=== PATIENT | male | born 1960 | race Caucasian/White ===

== ENCOUNTER → 2024-06-23 06:18 | Day surgery (SDC) | payer OTHER, SELFPAY | LOC: GI 06:18 | PROVIDERS: ATTENDING PHYSICIAN Specialist; FAMILY PHYSICIAN Family Medicine | DX: K51.00 Ulcerative (chronic) pancolitis without complications (principal); K63.5 Polyp of colon | CPT/HCPCS: 45380; 88305 ==

== ENCOUNTER → 2024-07-21 07:41 | Outpatient (REF) | payer OTHER, SELFPAY | LOC: HWRAD 07:41 | PROVIDERS: ATTENDING PHYSICIAN Internal Medicine Endocrinology, Diabetes & Metabolism; FAMILY PHYSICIAN Family Medicine | DX: E04.2 Nontoxic multinodular goiter (principal) | CPT/HCPCS: 76536 ==

== ENCOUNTER 2024-09-19 09:01 | Emergency (ER) | payer OTHER, SELFPAY ==
[2024-09-19 09:03] VITALS: BP 164/90
--- NOTE | 2024-09-19 09:24 | ED.GENMED ---
History of Present Illness
General
Chief Complaint: Flank Pain
Source: patient and spouse
Time Seen by Provider: 09/19/24 09:07
History of Present Illness
History of Present Illness:
64yoM with a history of ulcerative colitis, coronary artery disease, hyperlipidemia, and kidney stones presenting with his for evaluation of abdominal pain. He initially started with left flank pain about 3 to 4 days ago. Pain was radiating
into the left groin. He thought he may have a kidney stone as he has a history of this. He believes he passed a kidney stone around 2 PM yesterday afternoon. He was asymptomatic for several hours after this. Patient started to experience pain in
the right lower quadrant yesterday evening. He also reports chills and started to have diarrhea this morning. He had 3 watery bowel movements so far today. Patient's daughter and granddaughter currently are sick with a GI bug. Symptoms do not
feel like his prior UC flares. He is mainly worried that he may be developing an infection from an untreated kidney stone. He denies any fevers, chest pain, shortness of breath, dysuria, hematochezia. No recent travel or recent antibiotics. No
previous abdominal surgeries.
Past History
Past History
ED Past Medical History: Asthma, Hypercholesterolemia, NIDDM (Diet controlled), [place] and Other (Ulcerative colitis, kidney stones)
ED Past Surgical History: Cardiac (Stents X 1)
Social History
Tobacco: Former smoker
Alcohol: Occasional
Personal:
Living: with family
Family History
Family History: CAD (Mother); Negative Early CAD
Phy Exam
General Physical Exam
General Presentation: well appearing and no apparent distress
General age: appears stated age
General Skin: warm and dry
General Habitus: normal
General Mental: alert
ENT Exam
ENT Exam: normocephalic
Pulmonary Exam
Pulmonary Exam: no respiratory distress
Gastrointestinal Exam
Gastrointestinal Exam: soft, non distended and other (Mild tenderness to RLQ. Abdomen soft, non-distended. No rebound or guarding. )
Neurological Exam
Neurological Exam: alert
[place] Coma Scale
Eye Opening: Spontaneous
Verbal Response: Oriented
Motor Response: Obeys Commands
GCS Total Score: 15
Skin Exam
Skin Exam: normal color and warm/dry
Psychiatric Exam
Psychiatric Exam: normal mood/affect
Course
Orders/Labs/Results
Orders:
Orders
09/19/24 09:21
0.9% Sodium Chloride 1000 ml [Nss] 1,000 ml IV BOLUS
Ketorolac [Toradol] 15 mg IV NOW STA
Ondansetron Injectable [Zofran] 4 mg IV NOW STA
09/19/24 09:22
CT Abd/pel Without Iv Or Oral Urgent
Comment:
Reason For Exam: RLQ pain, L flank pain
09/19/24 09:28
COVID-19 Antigen Urgent
Source: Nasal Swab
Complete Blood Count/With Diff Urgent
Comprehensive Metabolic Panel Urgent
Lipase Urgent
Influenza A+B Rapid Molecular Urgent
HERB Source: Nasal Swab
Specimen Description:
09/19/24 11:59
0.9% Sodium Chloride 1000 ml [Nss] 1,000 ml IV BOLUS
09/19/24 12:03
Urinalysis Reflex To Culture Urgent
Date Specimen was Collected: 09/19/24
Time Specimen was Collected: 12:01
Urine Microscopic Reflex Cult Urgent
Abnormal Lab Results
09/19/24 09/19/24
09:28 12:03
WBC 11.7 H 10^3/uL
(4.8-10.8)
Abs Immat Gran (auto) 0.1 H 10^3/uL
(0-0.05)
Absolute Neuts (auto) 10.5 H 10^3/uL
(1.4-6.5)
Absolute Lymphs (auto) 0.6 L 10^3/uL
(1.2-3.4)
Neutrophils % 89.7 H %
(42.2-75.2)
Lymphocytes % 5.1 L %
(20.5-51.1)
Carbon Dioxide 21 L mmol/L
(22-30)
Creatinine 1.4 H mg/dL
(0.7-1.3)
Glucose 147 H mg/dl
(70-99)
Lipase 550 H U/L
(23-300)
Urine Ketones 2+ A
(Negative)
Ur Occult Blood Reflex 2+ A
(Negative)
Urine Bilirubin 1+ A
(Negative)
Urine RBC 3-6 A /HPF
(0-2)
Urine Bacteria (Reflex) Few A
(Negative)
Urine Glucose 1+ A
(Negative)
09/19/24 09:28
09/19/24 09:28
Vital Signs
Initial and Last Documented VS:
Initial Vital Signs
Temp Pulse Resp BP Pulse Ox
98.2 F 90 18 164/90 99
09/19/24 09:03 09/19/24 09:03 09/19/24 09:03 09/19/24 09:03 09/19/24 09:03
Last Documented Vital Signs
Temp Pulse Resp BP Pulse Ox
98.2 F 67 14 139/79 97
09/19/24 09:03 09/19/24 13:00 09/19/24 13:00 09/19/24 13:00 09/19/24 13:00
MDM/Problems Addressed
Differential Diagnosis Includes:
64yoM here with L flank pain x several days. New RLQ pain last night. Now having diarrhea and chills. Family members currently sick with a GI bug. No urinary symptoms. He is afebrile and hemodynamically stable. He is well appearing in no distress.
No signs of peritonitis on abdominal exam. Differential diagnosis includes but is not limited to: kidney stone, UTI, pyelonephritis, gastroenteritis, viral illness, appendicitis
Initial ED plan: Check abdominal labs, UA, COVID/flu swab, stool testing, and CT abdomen. IV Toradol, Zofran, and fluid bolus for symptoms.
*Critical Care Note
Total Time (30-74mins, 75-104mins- exclusive of procedures): Not Applicable
Update Note
Update Note:
CT shows a 2mm stone at the L UVJ with mild hydro. Appendix is normal on imaging and there is no bowel wall thickening or inflammation. Creatinine 1.4 which is mildly above baseline of 1.0. Additional fluid bolus ordered. Lipase mildly elevated at
550 although pancreas appears normal on CT. No signs of infection on urinalysis. Pain controlled on reassessment. He has not had any bowel movements throughout ED stay. No indication for hospitalization. Unclear etiology of RLQ pain. Prescriptions
provided for Zofran and Flomax. Advised f/u with PCP and urology. ED return precautions discussed. He expressed understanding and is in agreement with plan. He was discharged in stable condition.
ED Attending Note
-
Portions of this chart may have been created with voice recognition software.� Occasional wrong word or��sound alike� substitutions may have occurred due to the inherent limitations of voice recognition software.
Discharge Plan
Departure
Patient Disposition: Home (Routine Discharge)
Date of Disposition: 09/19/24
Time of Disposition: 12:55
Patient with high blood pressure during this ER visit?: No
Discharge Problem:
Calculus of distal left ureter
Instructions: Kidney Stones (DC), How to Strain Your Urine
Prescriptions:
New
tamsulosin [Flomax] 0.4 mg capsule
0.4 mg PO HS Qty: 7 0RF
ondansetron 4 mg tablet,disintegrating
4 mg PO Q6H PRN (Reason: nausea and vomiting) Qty: 20 0RF
No Action
aspirin 81 MG tablet,chewable
81 mg PO DAILY 0RF
atorvastatin 40 MG tablet
40 mg PO QPM
Multivitamin Gummy
1 ea PO DAILY
Saccharomyces boulardii 250 MG capsule
250 mg PO BID
prednisone 20 MG tablet
20 mg PO DAILY Qty: 3 0RF
epinephrine [EpiPen] 0.3 MG/0.3/SYRINGE auto-injector
0.3 mg IM PRN PRN (Reason: Allergic reation) Qty: 1 3RF
Referrals:
Jr Brooks DO [Family Provider] -
Davion Samayoa MD [Active] -
Activity Restrictions/Additional Instructions:
Drink plenty of fluids. Take Flomax and strain your urine until stone has passed.
Take Zofran as needed for nausea. Take Tylenol as needed for pain.
Please call on Saturday to schedule a follow-up appointment with your family doctor and urology.
Return to the ER with any worsening symptoms, severe pain, or fevers.
Interventions
Interventions:
*Risk Screen - Suicide Last Done: 09/19/24 09:03
*General Assessment Last Done: 09/19/24 09:03
*Neglect/Abuse Screening Last Done: 09/19/24 09:15
ED- Fall Risk Assessment Last Done: 09/19/24 09:16
*ED COVID-19 Vaccine History Last Done: 09/19/24 09:03
*Nursing Disposition Last Done: 09/19/24 13:10
FC-Qcnlcn-Lexjmmykes Assessment Last Done: 09/19/24 09:15
ED-Male Genitourinary Assessment Last Done: 09/19/24 09:15
Discharge Date and Time
Discharge Date/Time: 09/19/24 13:20
Print Language: LITHUANIAN
[2024-09-19] MEDS: NSS 1000 IV ×2 (09:33→12:06)
[2024-09-19] MEDS: ZOFRAN 4 MG IV (09:33)
[2024-09-19] MEDS: TORADOL 15 MG IV (09:33)
[2024-09-19 09:41] VITALS: BMI 28.1
[2024-09-19 10:17] LABS: COVID-19 Antigen Negative (Negative)
[2024-09-19 10:43] VITALS: BP 136/74
[2024-09-19 10:44] LABS: % Basophils 0.4 % (0-2); % Immature Granulocytes 0.4 % (0-0.5); % Lymphocytes 5.1 % (20.5-51.1); % Monocytes 2.4 % (1.7-9.3); % Neutrophils 89.7 % (42.2-75.2); Absolute Basophils 0.1 10^3/uL (0-0.2); Absolute Eosinophils 0.2 10^3/uL (0-0.7); Absolute Immature Granulocytes 0.1 10^3/uL (0-0.05); Absolute Lymphocytes 0.6 10^3/uL (1.2-3.4); Absolute Monocytes 0.3 10^3/uL (0.1-0.6); Absolute Neutrophils 10.5 10^3/uL (1.4-6.5); Hemoglobin 15.4 g/dL (13.0-18.0); Mean Corp Hgb Conc. 34.2 g/dL (33.0-37.0); Mean Corpuscular Hgb 30.1 pg (27.0-31.0); Mean Corpuscular Volume 88.1 fL (80.0-94.0); Mean Platelet Volume 9.9 fL (7.4-10.4); Nucleated Red Blood Cells % 0 % (-); Platelet Count 252 10^3/uL (130-400); Red Blood Cell Count 5.11 10^6/uL (4.70-6.10); Red Cell Dist. Width 12.1 % (11.5-14.5); White Blood Cell Count 11.7 10^3/uL (4.8-10.8)
[2024-09-19 10:54] LABS: ALT (SGPT) 24 U/L (0-50); AST (SGOT) 29 U/L (17-59); Albumin 4.3 g/dl (3.5-5.0); Alkaline Phosphatase 119 U/L (38-126); Blood Urea Nitrogen 18 mg/dl (9-20); Carbon Dioxide 21 mmol/L (22-30); Chloride 103 mmol/L (98-107); Estimated Creatinine Clearance 53 ml/min; Glucose 147 mg/dl (70-99); Lipase 550 U/L (23-300); Potassium 4.3 mmol/L (3.5-5.1); Sodium 135 mmol/L (135-145); Total Protein 8.1 g/dl (6.3-8.2); eGFR 56.83
[2024-09-19 11:00] VITALS: BP 123/71
[2024-09-19 12:27] LABS: Urine Albumin Trace (Neg - Trace); Urine Bilirubin 1+ (Negative); Urine Character Clear (Clear); Urine Color Yellow; Urine Glucose 1+ (Negative); Urine Ketone 2+ (Negative); Urine Leukocyte Negative (Negative); Urine Nitrite Negative (Negative); Urine Occult Blood 2+ (Negative); Urine Urobilinogen Negative (Neg - 1+)
[2024-09-19 12:50] LABS: Urine Urothelial Cell 0-2 /LPF (FEW)
[2024-09-19 12:51] LABS: Urine Bacteria Few (Negative)
[2024-09-19 13:00] VITALS: BP 139/79
== END 2024-09-19 13:20 | disposition home or self-care (01) ==
LOC: EMR 09:01
PROVIDERS: Physician Assistant; EMERGENCY PHYSICIAN Emergency Medicine; FAMILY PHYSICIAN Family Medicine
DX: N13.2 Hydronephrosis with renal and ureteral calculous obstruction (principal); E78.00 Pure hypercholesterolemia, unspecified; J45.909 Unspecified asthma, uncomplicated; I25.10 Atherosclerotic heart disease of native coronary artery without angina pectoris; I25.2 Old myocardial infarction; Z87.19 Personal history of other diseases of the digestive system; Z87.891 Personal history of nicotine dependence; Z95.5 Presence of coronary angioplasty implant and graft
CPT/HCPCS: 96374; 96375; 96361; 99284; 74176; 80053; 81003; 81015; 83690; 85025; 87502; 87811

== ENCOUNTER 2024-10-26 22:11 | Inpatient (IN) | payer OTHER, SELFPAY ==
[2024-10-26 15:48] VITALS: BP 189/115
--- NOTE | 2024-10-26 15:48 | ED.GENMED ---
ED Provider Triage
<David Del Angel PA-C - Last Filed: 10/26/24 19:39>
-
Patient seen by provider in Triage?: Seen in Triage
Attestation: A medical screening examination has been initiated by a qualified medical provider. Based on the assessment performed at this time, it has been determined that an emergent medical condition may exist and the patient has been informed
that further medical evaluation and possible additional diagnostic testing may be needed.
HPI:
GENERAL: Alert , in no apparent distress
EYE: No visual abnormalities.
NECK: Trachea midline
ENT: No visible abnormalities.
LUNGS: No acute respiratory distress
NEUROLOGICAL: Alert and oriented
SKIN: Skin intact. No visible changes.
MUSCULOSKELETAL: Moving extremities normally
PSYCH: Normal and appropriate interaction.
This is a medical evaluation conducted in person to initiate diagnostic evaluation and provide initial therapeutics. Please see further documentation by the treating clinician.
7:30 PM: GI team was notified of patient's CT results and labs. They are recommending patient be admitted. Patient was brought to the front of the line for a room assignment. Patient to be admitted to hospitalist service.
History of Present Illness
<David Del Angel PA-C - Last Filed: 10/26/24 19:39>
General
Chief Complaint: Abdominal Symptoms
Time Seen by Provider: 10/26/24 20:05
<Ulises Jaffe DO - Last Filed: 10/26/24 21:24>
General
Source: patient
History of Present Illness
History of Present Illness:
64-year-old male presents to the emergency room at the advice of Dr. Lei young airline lounge receptionist. Patient has been experiencing frequent watery, bloody diarrhea for the past 5 to 6 weeks. He has had about a 20 pound weight loss. Patient has a
history of ulcer colitis. He had a change in his biologic treatment in a fall. Shortly thereafter he had a kidney stone and began having bloody stools. He has been on a couple courses of oral steroids without improvement. When he attempts to eat
something he has increased abdominal pain and increased bloody stool so therefore he is not eating very much. No fever. Abdominal pain is tolerable right now.
Past History
<David Del Angel PA-C - Last Filed: 10/26/24 19:39>
Past History
ED Past Medical History: Asthma, Hypercholesterolemia, NIDDM (Diet controlled), [place] and Other (Ulcerative colitis, kidney stones)
ED Past Surgical History: Cardiac (Stents X 1)
Social History
Tobacco: Former smoker
Alcohol: Occasional
Personal:
Living: with family
Family History
Family History: CAD (Mother); Negative Early CAD
Phy Exam
<Ulises Jaffe DO - Last Filed: 10/26/24 21:24>
Physical Exam
Physical Exam:
General: Awake, Alert, Oriented X3. No acute distress.
Vitals: unremarkable
Head: Atraumatic
Eyes: Pupils equal, EOMI
Throat: Airway intact, no exudates, mildly dry mucosa
Neck: Trachea midline
Lungs: Clear and equal b/l
Heart: Regular rate, no murmurs
Abd: Soft, mildly distended, mild tender but no rebound, No pulsatile mass
Neuro: Nonfocal
Skin: Warm, dry, no rash
Extremities: pulses equal b/l, no edema
Course
<David Del Angel PA-C - Last Filed: 10/26/24 19:39>
Orders/Labs/Results
Orders:
Orders
10/26/24 15:48
Iohexol [Omnipaque] See Protocol PO NOW STA
10/26/24 15:49
CT Abd/pel (oral only)-DH Only Urgent
Comment:
Reason For Exam: abd pain, hematochezia
10/26/24 16:01
Type+Screen Urgent
Complete Blood Count/With Diff Urgent
Comprehensive Metabolic Panel Urgent
Lipase Urgent
PTT Urgent
Prothrombin Time Urgent
10/26/24 20:19
MethylPREDNISolone PF [Solu-Medrol Pf] 40 mg IV NOW STA
10/26/24 20:30
0.9% Sodium Chloride 1000 ml [Nss] 1,000 ml IV 200 mls/hr
10/26/24 20:45
Calprotectin, Fecal [S] Urgent
Date Specimen was Collected: 10/26/24
Time Specimen was Collected: 20:42
10/26/24 20:46
CDIFF [C difficile Antigen & Toxins] Urgent
HERB Source: Feces/Stool
Specimen Description:
Date Specimen was Collected: 10/26/24
Time Specimen was Collected: 20:42
Abnormal Lab Results
10/26/24
16:01
RBC 4.68 L 10^6/uL
(4.70-6.10)
Abs Immat Gran (auto) 0.1 H 10^3/uL
(0-0.05)
Immature Gran % 0.7 H %
(0-0.5)
Sodium 134 L mmol/L
(135-145)
Glucose 304 H mg/dl
(70-99)
Antibody Screen Positive A
(Negative)
10/26/24 16:01
10/26/24 16:01
Vital Signs
Initial and Last Documented VS:
Initial Vital Signs
Temp Pulse Resp BP Pulse Ox
98.1 F 89 18 189/115 98
10/26/24 15:48 10/26/24 15:48 10/26/24 15:48 10/26/24 15:48 10/26/24 15:48
Last Documented Vital Signs
Temp Pulse Resp BP Pulse Ox
97.8 F 68 18 141/80 96
10/26/24 19:06 10/26/24 20:16 10/26/24 20:16 10/26/24 20:16 10/26/24 20:16
Karlielt;Ulises Jaffe, DO - Last Filed: 10/26/24 21:24>
Orders/Labs/Results
Orders:
Orders
10/26/24 15:48
Iohexol [Omnipaque] See Protocol PO NOW STA
10/26/24 15:49
CT Abd/pel (oral only)-DH Only Urgent
Comment:
Reason For Exam: abd pain, hematochezia
10/26/24 16:01
Type+Screen Urgent
Complete Blood Count/With Diff Urgent
Comprehensive Metabolic Panel Urgent
Lipase Urgent
PTT Urgent
Prothrombin Time Urgent
10/26/24 20:19
MethylPREDNISolone PF [Solu-Medrol Pf] 40 mg IV NOW STA
10/26/24 20:30
0.9% Sodium Chloride 1000 ml [Nss] 1,000 ml IV 200 mls/hr
10/26/24 20:45
Calprotectin, Fecal [S] Urgent
Date Specimen was Collected: 10/26/24
Time Specimen was Collected: 20:42
10/26/24 20:46
CDIFF [C difficile Antigen & Toxins] Urgent
HERB Source: Feces/Stool
Specimen Description:
Date Specimen was Collected: 10/26/24
Time Specimen was Collected: 20:42
Abnormal Lab Results
10/26/24
16:01
RBC 4.68 L 10^6/uL
(4.70-6.10)
Abs Immat Gran (auto) 0.1 H 10^3/uL
(0-0.05)
Immature Gran % 0.7 H %
(0-0.5)
Sodium 134 L mmol/L
(135-145)
Glucose 304 H mg/dl
(70-99)
Antibody Screen Positive A
(Negative)
10/26/24 16:01
10/26/24 16:01
Vital Signs
Initial and Last Documented VS:
Initial Vital Signs
Temp Pulse Resp BP Pulse Ox
98.1 F 89 18 189/115 98
10/26/24 15:48 10/26/24 15:48 10/26/24 15:48 10/26/24 15:48 10/26/24 15:48
Last Documented Vital Signs
Temp Pulse Resp BP Pulse Ox
97.8 F 68 18 141/80 96
10/26/24 19:06 10/26/24 20:16 10/26/24 20:16 10/26/24 20:16 10/26/24 20:16
<Ulises Jaffe DO - Last Filed: 10/26/24 21:24>
MDM/Problems Addressed
Differential Diagnosis Includes:
Exacerbation of her ulcerative colitis, colonic perforation or abscess, anemia, electrode abnormality
MDM/Problems Addressed:
Patient presents with persistent bloody diarrhea from ulcerative colitis that has not been controlled with outpatient regimens. CT here shows moderate diffuse colonic inflammation. No abscess. His white count is normal. Discussed with GI. With
no fever no white count there is no immediate need for antibiotics. Will start IV steroids. Stool studies recommended by GI have been ordered.
<Ulises Jaffe DO - Last Filed: 10/26/24 21:24>
*Radiology
Radiology exam reviewed: radiology read reviewed
*Pulse Oximetry
Patient hypoxic: no
*Critical Care Note
Total Time (30-74mins, 75-104mins- exclusive of procedures): Not Applicable
ED Attending Note
<David Del Angel PA-C - Last Filed: 10/26/24 19:39>
-
Portions of this chart may have been created with voice recognition software.� Occasional wrong word or��sound alike� substitutions may have occurred due to the inherent limitations of voice recognition software.
Discharge Plan
Departure
Patient Disposition: Admit
Date of Disposition: 10/26/24
Time of Disposition: :
Admit to: Med/Surg
Presentation/result/management discussed w/ accepting MD/DO: Hospitalist
Condition: Fair
Discharge Problem:
Exacerbation of ulcerative colitis with rectal bleeding
Prescriptions:
No Action
atorvastatin 40 MG tablet
40 mg PO QPM
prednisone 20 MG tablet
20 mg PO DAILY Qty: 3 0RF
epinephrine [EpiPen] 0.3 MG/0.3/SYRINGE auto-injector
0.3 mg IM PRN PRN (Reason: Allergic reation) Qty: 1 3RF
cholecalciferol (vitamin D3) [Vitamin D3] 50 mcg (2,000 unit) Capsule
50 mcg PO DAILY
aspirin 81 MG tablet,chewable
162 mg PO DAILY
Interventions
Interventions:
*Risk Screen - Suicide Last Done: 10/26/24 20:15
*General Assessment Last Done: 10/26/24 20:15
*Neglect/Abuse Screening Last Done: 10/26/24 20:15
*ED COVID-19 Vaccine History Last Done: 10/26/24 20:15
KK-Qiphwu-Hbwsfjpvvx Assessment Last Done: 10/26/24 20:18
Discharge Date and Time
Print Language: SINHALA
[2024-10-26] MEDS: OMNIPAQUE 50 ML PO (15:56)
[2024-10-26 16:20] LABS: INR 0.95
[2024-10-26 16:21] LABS: APTT 23.8 Sec (23.4-35.0)
[2024-10-26 16:29] LABS: ALT (SGPT) 26 U/L (0-50); AST (SGOT) 20 U/L (17-59); Albumin 3.6 g/dl (3.5-5.0); Alkaline Phosphatase 113 U/L (38-126); Blood Urea Nitrogen 17 mg/dl (9-20); Calcium 8.7 mg/dl (8.4-10.2); Carbon Dioxide 25 mmol/L (22-30); Chloride 99 mmol/L (98-107); Glucose 304 mg/dl (70-99); Lipase 194 U/L (23-300); Sodium 134 mmol/L (135-145); Total Bilirubin 0.4 mg/dl (0.2-1.3); Total Protein 6.9 g/dl (6.3-8.2); eGFR > 60.00
[2024-10-26 16:44] LABS: % Basophils 0.5 % (0-2); % Eosinophils 0.3 % (0-6); % Immature Granulocytes 0.7 % (0-0.5); % Lymphocytes 22.7 % (20.5-51.1); % Monocytes 4.1 % (1.7-9.3); % Neutrophils 71.7 % (42.2-75.2); Absolute Immature Granulocytes 0.1 10^3/uL (0-0.05); Absolute Monocytes 0.4 10^3/uL (0.1-0.6); Absolute Neutrophils 6.3 10^3/uL (1.4-6.5); Hematocrit 40.9 % (39.0-52.0); Mean Corp Hgb Conc. 34.2 g/dL (33.0-37.0); Mean Corpuscular Hgb 29.9 pg (27.0-31.0); Mean Corpuscular Volume 87.4 fL (80.0-94.0); Mean Platelet Volume 8.9 fL (7.4-10.4); Nucleated Red Blood Cells % 0 % (-); Platelet Count 308 10^3/uL (130-400); Red Blood Cell Count 4.68 10^6/uL (4.70-6.10); Red Cell Dist. Width 13.1 % (11.5-14.5); White Blood Cell Count 8.8 10^3/uL (4.8-10.8)
[2024-10-26 19:06] VITALS: BP 133/82
[2024-10-26 20:15] VITALS: BMI 26.2
[2024-10-26 20:16] VITALS: BP 141/80
--- NOTE | 2024-10-26 20:43 | EDRN ---
the pt stated to this PHOTO COLORER that he just had a Negative C. Diff stool test one week ago. This PHOTO COLORER informed ER Dr Jaffe of above. Per ER DR Jaffe, the pts Dr Odom wants to obtain another stool sample and repeat the stool tests. the pt was
notified of above
[2024-10-26] MEDS: NSS 1000 IV (20:48)
[2024-10-26] MEDS: SOLU-MEDROL PF 40 MG IV (20:49)
--- NOTE | 2024-10-26 21:18 | HPS.HSE ---
Addendum entered and electronically signed by Zach Mckoy DO 10/26/24 23:04:
Patient seen and examined independently. Agree with findings and plan as set forth by Aida Rodriguez PA-C.
Patient is a 64y M with PMH significant for ulcerative colitis and ASCVD who presents to ED complaining of bloody diarrhea. Patient states that he has been having uncontrolled bloody diarrhea - between 10 and 12 bowel movements per day - for the
past month or so. He was switched to Entyvio last Fall. He has been followed by GI and notes that he has been on multiple courses of oral steroid tapers. He notes that he has some temporary relief however his symptoms return once doses are
decreasing. Patient states that he has lost 20 lbs in the past month.
Ass:
Ulcerative Colitis with Acute Flare / Uncontrolled Symptoms
ASCVD
Hyperglycemia secondary to systemic steroids
Plan:
Admit for further evaluation and treatment.
Begin SoluMedrol 40mg IV daily per GI recommendations.
GI evaluation for further recommendations.
Supportive care, IVFs, etc.
Follow for clinical improvement.
Monitor glucose while on systemic steroids and cover with SSI if necessary.
Continue ASA uninterrupted.
Original Note:
Family Physician
-
Family Physician: NOT KNOW UNKNOWN - PT DOES
Chief Complaint
-
Bloody Diarrhea
History of Present Illness
Patient is a 64 y/o male past medical history of CAD and ulcerative colitis who presents with bloody diarrhea. Patient reports on going symptoms for about 5-6 weeks. He completed one coarse of steroids without much improvement, then was started on
a second coarse of steroids at a higher dose again without change in symptoms. He continues with abdominal pain, bloody diarrhea over 10 times a day. He denies fevers, sweats or chills. He reports negative stools studies last week.
Medical History
Past Medical History
Past Medical History: Reports Other
Additional Past Medical History:
Coronary Artery Disease s/p Stent
Hyperlipidemia
Pre-Diabetes
Ulcerative Colitis
Past Surgical History: Reports Other
Additional Past Surgical History:
Multiple Colonoscopies
Cardiac Stent
Social History
Tobacco: Former Smoker (Quit about 10 years ago)
Alcohol: Occasional
Family History
Family History: Not pertinent
Allergies / Home Medications
Allergies reflects when Allergies were last updated in [facility].
Home Medications with original date entered in [facility]
Allergy/Medication List:
Allergies
Allergy/AdvReac Type Severity Reaction Status Date / Time
buckwheat Allergy Shortness Verified 10/26/24 20:15
of Breath
flaxseed Allergy Shortness Verified 10/26/24 20:15
of Breath
Iodinated Contrast Media Allergy IV Verified 10/26/24 20:15
[Iodinated Contrast Media - DYE-ANAPHYLAXIS
Oral and]
Home Medications
atorvastatin 40 mg tablet 40 mg PO QPM 01/03/17
epinephrine 0.3 mg/0.3 mL injection, auto-injector (EpiPen) 0.3 mg (0.3 mL) IM PRN PRN Allergic reation ##1 01/03/22
prednisone 20 mg tablet 20 mg PO DAILY Allergies #3 tabs 01/03/22
aspirin 81 mg chewable tablet 162 mg PO DAILY 10/26/24
cholecalciferol (vitamin D3) 50 mcg (2,000 unit) capsule (Vitamin D3) 50 mcg PO DAILY 10/26/24
Review of Systems
-
A 12 point ROS was completed and negative except as noted: Yes
Constitutional: Reports Weight Loss; Denies Fever or Chills
Respiratory: Denies Cough or Trouble Breathing
Cardiac: Denies Chest Pain or Palpitations
Abdomen/GI: Reports See HPI
Physical Exam
Vital Signs
Vital Signs
Temp Pulse Resp BP Pulse Ox
97.8 F 68 18 141/80 96
10/26/24 19:06 10/26/24 20:16 10/26/24 20:16 10/26/24 20:16 10/26/24 20:16
Physical Exam
General: Comfortable and Conversant
HEENT: Anicteric and Moist mucous membranes
Respiratory: Clear and Non Labored Respirations
Cardiac: S1/S2 and Regular Rhythm
GI: Soft and Tender (Mild throughout slightly greater on right than left; No rebound or guarding)
Rectal: Deferred by Provider
Musculoskeletal: No Clubbing, No Cyanosis and No Edema
Skin: Warm and Dry
Neuro: Awake, Alert, Oriented and Nonfocal/grossly intact
Psych: Calm
Laboratory Results
-
10/26/24 16:01
10/26/24 16:01
Laboratory Results
PT 13.0 Sec (11.4-14.6) 10/26/24 16:01
INR 0.95 10/26/24 16:01
APTT 23.8 Sec (23.4-35.0) 10/26/24 16:01
Total Bilirubin 0.4 mg/dl (0.2-1.3) 10/26/24 16:01
AST 20 U/L (17-59) 10/26/24 16:01
ALT 26 U/L (0-50) 10/26/24 16:01
Alkaline Phosphatase 113 U/L (38-126) 10/26/24 16:01
Lipase 194 U/L (23-300) 10/26/24 16:01
Data Reviewed
-
CT Scan: Report Reviewed by me
Lab Data: Labs Reviewed by me
Impression/Plan
-
Persistent Bloody Diarrhea, likely Ulcerative Colitis Flare
-Consult GI
-Continue Solu-Medrol 40mg IV Daily
-Allow clear liquids
-Check fecal calprotectin
Hyperglycemia
-Patient reports pre-diabetes with HgbA1c ~6.2 for the past several years which he has controlled with diet
-Sugars are uncontrolled in setting of steroids
-Check HgbA1c
-Monitor sugars and continue coverage insulin
Coronary Artery Disease s/p Stent
-Aspirin on hold in setting of bloody diarrhea
Hyperlipidemia
-Continue atorvastatin
DVT proph: SCDs
Code Status: Full Code
[2024-10-26 22:32] VITALS: BP 147/87
[2024-10-26 23:43] VITALS: BP 165/99; BMI 25.9
--- NOTE | 2024-10-26 23:43 | PTCARENOTE ---
Pt arrived onto floor @2343. Pt AAOx3 and able to ambulate into room without assistance. Pt with no complaints of pain or SOB at this time. Pt oriented to room and call proctor; will continue to monitor
[2024-10-27] MEDS: NSS 1000 IV ×3 (02:07→21:22)
[2024-10-27 03:52] VITALS: BP 135/81
[2024-10-27 06:00] VITALS: BMI 25.9
[2024-10-27 07:09] VITALS: BP 149/90
[2024-10-27 08:34] LABS: Glucose - Point of Care 175 mg/dl (70-99)
[2024-10-27 08:37] LABS: Hematocrit 38.4 % (39.0-52.0); Hemoglobin 13.1 g/dL (13.0-18.0); Mean Corp Hgb Conc. 34.1 g/dL (33.0-37.0); Mean Corpuscular Volume 87.9 fL (80.0-94.0); Mean Platelet Volume 9.2 fL (7.4-10.4); Platelet Count 296 10^3/uL (130-400); Red Blood Cell Count 4.37 10^6/uL (4.70-6.10); Red Cell Dist. Width 13.1 % (11.5-14.5); White Blood Cell Count 11.2 10^3/uL (4.8-10.8)
[2024-10-27] MEDS: NOVOLOG FLEXPEN-LOW RESISTANCE 1 UNITS SC (08:55)
[2024-10-27 08:56] LABS: Blood Urea Nitrogen 16 mg/dl (9-20); Calcium 8.5 mg/dl (8.4-10.2); Carbon Dioxide 23 mmol/L (22-30); Chloride 102 mmol/L (98-107); Estimated Creatinine Clearance 82 ml/min; Glucose 184 mg/dl (70-99); Potassium 4.5 mmol/L (3.5-5.1); Sodium 135 mmol/L (135-145); eGFR > 60.00
--- NOTE | 2024-10-27 09:09 | CON.GI ---
Addendum entered and electronically signed by Efrain Greco DO 10/27/24 12:27:
I saw and examined the patient.
The PROBATION COUNSELOR's note was reviewed and I agree with the note.
Comment: Mr. Bettencourt is a 64 y.o male with past medical history of obstructive CAD, hx of DC (s/p stent, on ASA), hx of CDI, herpes zoster, and history of ulcerative colitis (prev on 5-ASA and then IFX) with recent colonoscopy demonstrating Mccormick
score 2 pancolitis (05/2024 after being found to have an elevated fecal calprotectin) where he was started on Entyvio (06/2024) with ongoing bloody stools and repeat elevated fecal calprotectin 3800 with ongoing refractory bloody stools despite
ongoing steroids. CT imaging concerning for moderate inflammation throughout the colon concerning for ulcerative pancolitis. Etiology concerning for [id number] acute ulcerative pancolitis despite outpatient oral steroids and recent change to
Entyvio (06/2024). Need to r/o infectious stool studies particularly C Diff given his history (although prior C Diff negative 10/22) along with potential underlying CMV given his refractory pancolitis. Agree with IV steroids 20 mg q 8 hrs along with
trending inflammatory markers with ESR/CRP. Would benefit from a limited flex-sig to r/o CMV colitis along with reassessing disease activity as previous Mccormick Score 2 during prior colonoscopy 05/2024. See rest of care as outlined below.
GI will continue to follow while inpatient.
Original Note:
Consultation
-
Date/Time Consultation Requested: 10/26/24 2330
Date/Time Consultation Performed: 10/27/24 0900
Requesting Provider: Aida Rodriguez PA-C
Performing Provider: GILA Wright, Efrain Greco DO
Reason for Consultation: colitis flare
Medical History
Chief Complaint / HPI
History of Present Illness:
Pt is a 64yo with hx CAD with prior DC and stent, pilonidal cyst with prior surgery, c-diff, herpes zoster, NIDDM, longstanding ulcerative colitis with prior use of Mesalamine agent then inflectra. He was noted with some elevation on fecal ludmila up
to 1340 in February then proceed with colonoscopy in May with pancolitis with friability, erosions and acute/chronic inflammation. he was started on Entyvio in June but fecal ludmila continued to elevate to 3880 in August. He was placed on
outpatient steroids and 10/22 c-diff was neg with also neg c-diff, O+p, stool cx in August. He now presents with continued blood diarrhea with 10-12 stools per day. On admission noted with hbg 14, platelets 308, glucose 304 with otherwise stable
labs. Ct on admission with Moderate contiguous wall thickening involving the colon, extending from the rectum through the inferior cecum. Findings are compatible with the given clinical history of ulcerative colitis. No significant wall thickening
is seen involving the ileum. No evidence for bowel obstruction or free intraperitoneal air. There is no significant free pelvic fluid.
In review with patient symptoms became severe around [place] with continuous bleeding without formed stools since that time. He has lost about 18 lbs since that time. He has some mild abdominal pain. He denies dysphagia, GERD, nausea,
vomiting, or black stools.
Past Medical History
Past Medical History: Asthma, CAD, Cancer (squamous cell CA), Hypercholesterolemia, NIDDM, DC and Other (ulcerative colitis,, c-diff infection, pilonidal cyst, herpes Zoster, cervical DDD, thyroid nodule, onychomycosis, left steroclavicalular joint
arthrosis )
Past Surgical History: Cardiac (stents ) and Other (pilonidal cyst surgery, mohs surgery)
Social History
Tobacco: Former Smoker (quit 10 years ago)
Alcohol: Occasional
Drug: None
Personal:
Living: With Family
Employment: Retired
Family History
Family History: Other (no family hx IBD)
Allergies / Home Medications
Allergy/AdvReac Type Severity Reaction Status Date / Time
buckwheat Allergy Shortness Verified 10/26/24 20:15
of Breath
flaxseed Allergy Shortness Verified 10/26/24 20:15
of Breath
Iodinated Contrast Media Allergy IV Verified 10/26/24 20:15
[Iodinated Contrast Media - DYE-ANAPHYLAXIS
Oral and]
�Medication �Instructions �Recorded
atorvastatin 40 mg tablet 40 mg PO QPM 01/03/17
epinephrine 0.3 mg/0.3 mL 0.3 mg (0.3 mL) IM PRN PRN 01/03/22
injection, auto-injector (EpiPen) Allergic reation ##1
prednisone 20 mg tablet 20 mg PO DAILY Allergies #3 tabs 01/03/22
aspirin 81 mg chewable tablet 162 mg PO DAILY 10/26/24
cholecalciferol (vitamin D3) 50 50 mcg PO DAILY 10/26/24
mcg (2,000 unit) capsule (Vitamin
D3)
Review of Systems
-
History Source: Patient
Constitutional: Reports Weight Loss (18 lbs with rectal bleeding) and Other (no visual problems)
Respiratory: Reports Trouble Breathing (at times )
Cardiac: Reports No Symptoms
Abdomen/GI: Reports Abdominal Pain, Diarrhea and Bloody Stools
: Reports No Symptoms
Musculoskeletal: Reports No Symptoms
Skin: Reports Rash
Neurological: Reports No Symptoms
Endocrine: Reports No Symptoms
Hematologic/Lymphatic: Reports Bleeding
Vital Signs
Temp Pulse Resp BP Pulse Ox
97.6 F 69 18 149/90 97
10/27/24 07:09 10/27/24 07:09 10/27/24 07:09 10/27/24 07:09 10/27/24 07:09
Physical Exam
Exam
General: Well Developed, Well Nourished and No Apparent Distress
HEENT: Normocephalic and Anicteric
Respiratory: Clear
Cardiac: Regular Rhythm
GI: Soft, Non Distended and Tender (mild lower abdominal pain)
Rectal: Deferred by Provider
Musculoskeletal: No Clubbing and No Cyanosis
Skin: Warm
Neuro: Awake, Alert and AO x 3
Psych: Calm
Results
WBC 11.2 10^3/uL (4.8-10.8) H 10/27/24 07:49
Hgb 13.1 g/dL (13.0-18.0) 10/27/24 07:49
Hct 38.4 % (39.0-52.0) L 10/27/24 07:49
MCV 87.9 fL (80.0-94.0) 10/27/24 07:49
Plt Count 296 10^3/uL (130-400) 10/27/24 07:49
Absolute Neuts (auto) 6.3 10^3/uL (1.4-6.5) 10/26/24 16:01
PT 13.0 Sec (11.4-14.6) 10/26/24 16:01
INR 0.95 10/26/24 16:01
APTT 23.8 Sec (23.4-35.0) 10/26/24 16:01
Sodium 135 mmol/L (135-145) 10/27/24 07:49
Potassium 4.5 mmol/L (3.5-5.1) 10/27/24 07:49
Chloride 102 mmol/L (98-107) 10/27/24 07:49
Carbon Dioxide 23 mmol/L (22-30) 10/27/24 07:49
BUN 16 mg/dl (9-20) 10/27/24 07:49
Creatinine 0.9 mg/dL (0.7-1.3) 10/27/24 07:49
Calcium 8.5 mg/dl (8.4-10.2) 10/27/24 07:49
Total Bilirubin 0.4 mg/dl (0.2-1.3) 10/26/24 16:01
AST 20 U/L (17-59) 10/26/24 16:01
ALT 26 U/L (0-50) 10/26/24 16:01
Alkaline Phosphatase 113 U/L (38-126) 10/26/24 16:01
Lipase 194 U/L (23-300) 10/26/24 16:01
Diagnostic Image Results:
10/26/24 CT Abd/pel (oral only)-DH Only
Moderate contiguous wall thickening involving the colon, extending from the rectum through the inferior cecum. Findings are compatible with the given clinical history of ulcerative colitis.
No significant wall thickening is seen involving the ileum. No evidence for bowel obstruction or free intraperitoneal air. There is no significant free pelvic fluid.
Multiple small bilateral nephroliths, with no evidence for ureteral calculus on the present examination.
Bony degenerative changes as described.
Prior GI Procedures:
������09/24/24 CALPROTECTIN 3880
JUNE/2024- INDUCTION ENTYVIO
06/23/24 COLON- Pancolitis erythema, decreased vascularity, friability, erosion bx mild acute/chronic inflammation ascending to prox transverse. Nonadenomatous polyp cecum
05/18/24 IFX LEVEL 13, AB to IFX <10
03/16/24 CALPROTECTIN 1340
12/26/22 IFX LEVEL 15.6. AB TO IFX <10
07/16/22 COLON (Natalia)- Normal colon bx chronic moderately active colitis ascending colon in one biopsy, moderate chronic inflammation
06/09/20 COLON (Natalia)- Ulceration ascending colon and rectum bx mild/moderate chronic pancolitis
APRIL 2018- REMICADE INDUCTION
04/14/18 COLON (Natalia)- Two pAC polyps. Erythema/edema, ulcers rectosigmoid bx mild chronic active pancolitis, moderate/severe proctitis indefinite for dysplasia
11/29/14 COLON (Natalia)- Patchy inflammation and pseudopolyps recto-sigmoid, descending, hepatic flexure bx moderate active colitis @20cm, mild elsewhere.
06/26/10 COLON (Natalia)- Ulceration proximal ascending colon, normal elsewhere bx moderate chronic colitis ascending/transverse mild elsewhere.
Assessment / Plan
-
Pt is a 64yo with hx CAD with prior DC and stent, pilonidal cyst with prior surgery, c-diff, herpes zoster, NIDDM, longstanding ulcerative colitis with prior use of Mesalamine agent then inflectra. He was noted with some elevation on fecal ludmila up
to 1340 in February then proceed with colonoscopy in May with pancolitis with friability, erosions and acute/chronic inflammation. he was started on Entyvio in June but fecal ludmila continued to elevate to 3880 in August. He was placed on
outpatient steroids and 10/22 c-diff was neg with also neg c-diff, O+p, stool cx in August. He now presents with continued blood diarrhea with 10-12 stools per day. On admission noted with hbg 14, platelets 308, glucose 304 with otherwise stable
labs. Ct on admission with Moderate contiguous wall thickening involving the colon, extending from the rectum through the inferior cecum. Findings are compatible with the given clinical history of ulcerative colitis. No significant wall thickening
is seen involving the ileum. No evidence for bowel obstruction or free intraperitoneal air. There is no significant free pelvic fluid.
-ulcerative colitis flare with elevated fecal ludmila and rectal bleeding
-rectal to cecal inflammation on CT
-wt loss
other med problems:
-CAD with prior DC/stent
-hx c-diff
-NIDDM on medication but some FBS elevation with steroid use
-hx herpes Zoster
-pidonical cyst
PLAN:
etiology of symptoms with concern for UC flare vs infectious r/o CVM vs other
repeat C-diff neg with recent outpatient cultures in August and September neg
will change dosing of steroids to methylprednisone 20mg Q 8 hours
cont management of hyperglycemia per medical team
will add CRP/ESR-- fecal ludimla pending
plan for flex sig 10/28 to rule out CMV
some abdominal pain but will allow diet and add supplement with weight loss prior to admission
will add compression stocking then Lovenox to start tomorrow night after flex as high risk for DVT
can consider local therapy with Cortenema/Rowasa with frequency but will hold til after eval with flex
-
-
Thank you for consultation and allowing me to participate in the patient's care. Please call the production weigher GI physician during the after hours with any questions or concerns.
[2024-10-27 09:42] VITALS: BMI 25.9
--- NOTE | 2024-10-27 10:01 | W.PN.HOSP.TC ---
Today's Communication/Plan
-
IV steroids. Flex sig in a.m.
Assessment / Plan
Assessment / Plan
Physical Exam
General: Acutely ill
HEENT: Anicteric and Moist mucous membranes
Respiratory: Clear and Non Labored Respirations
Cardiac: S1/S2 and Regular Rhythm
GI: Soft and Tender (Mild throughout slightly greater on right than left; No rebound or guarding)
Rectal: Deferred by Provider
Musculoskeletal: No Clubbing, No Cyanosis and No Edema
Skin: Warm and Dry
Neuro: Awake, Alert, Oriented and Nonfocal/grossly intact
Psych: Calm
A/P:
Persistent Bloody Diarrhea, likely Ulcerative Colitis Flare
-Consult GI appreciated
-Continue Solu-Medrol but changed to 20 mg IV every 8 hours
-Allow low residue today but n.p.o. after midnight
-Check fecal calprotectin and pending
-CRP 31.7, sed rate 58,
-Plan for flexible sigmoidoscopy tomorrow
Hyperglycemia
-Patient reports pre-diabetes with HgbA1c ~6.2 for the past several years which he has controlled with diet
-Sugars are uncontrolled in setting of steroids
-Check HgbA1c, 7.8 today
-Monitor sugars and continue coverage insulin
Coronary Artery Disease s/p Stent
-Aspirin on hold in setting of bloody diarrhea
Hyperlipidemia
-Continue atorvastatin
DVT proph: SCDs
Code Status: Full Code
Total time spent on today's encounter was 52 minutes which included time spent in counseling the patient/family regarding diagnosis and treatment plan as listed above, goals of care, and symptom management. Case was discussed with nursing staff,
specialists, and care coordinators/case management. All labs and imaging personally reviewed by me. Remainder the time spent in detailed review of previous records, lab data, imaging, and other medical provider documentation.
Anticipated Discharge: > 48 hours
Subjective/Interval History
-
Date of Service: October 27, 2024
Continues to have bloody stools and abdominal discomfort. Afebrile.
Objective Data
-
Labs:
Laboratory Results
10/27/24
07:49
WBC 11.2 H
Hgb 13.1
Hct 38.4 L
Plt Count 296
Sodium 135
Potassium 4.5
Chloride 102
Carbon Dioxide 23
BUN 16
Creatinine 0.9
Glucose 184 H
Calcium 8.5
Vital Signs:
Vital Signs
Temp Pulse Resp BP Pulse Ox
97.6 F 69 18 149/90 97
10/27/24 07:09 10/27/24 07:09 10/27/24 07:09 10/27/24 07:09 10/27/24 07:09
I&O
10/26/24 10/27/24 10/28/24
06:59 06:59 06:59
Intake Total 240 / 240
Balance 240 / 240
[2024-10-27] MEDS: SOLU-MEDROL PF 20 MG IV ×2 (11:22→17:11)
[2024-10-27 11:46] LABS: Glycohemoglobin (HgbA1c) 7.8 % (4.0-5.6)
[2024-10-27 12:34] LABS: Glucose - Point of Care 146 mg/dl (70-99)
[2024-10-27] MEDS: NOVOLOG FLEXPEN-LOW RESISTANCE SC (12:44)
--- NOTE | 2024-10-27 13:52 | CM ---
CM reviewed chart, patient seen bedside, initial assessment completed. Patient resides with his in a two story home, three steps to enter. Patient reports independent with ADLs/IADLs, denies DME, VN, or SNF. Patient confirms PCP Jr
Todd, [facility], confirms prescription coverage. Patient denies needs at this time, will continue to follow for all discharge planning needs.
Plan; home no needs likely.
[2024-10-27 14:09] LABS: Erythrocyte Sed Rate 58 mm/hour (0-20)
[2024-10-27 15:40] VITALS: BP 126/71
[2024-10-27 17:04] LABS: Glucose - Point of Care 222 mg/dl (70-99)
[2024-10-27] MEDS: LIPITOR 40 MG PO (17:11)
[2024-10-27] MEDS: MIRALAX 34 GRAMS PO (17:12)
[2024-10-27] MEDS: NOVOLOG FLEXPEN-LOW RESISTANCE 2 UNITS SC (17:12)
[2024-10-27 21:30] LABS: Glucose - Point of Care 258 mg/dl (70-99)
[2024-10-28] MEDS: SOLU-MEDROL PF 20 MG IV ×3 (02:53→17:26)
[2024-10-28 03:53] VITALS: BMI 25.6
[2024-10-28] MEDS: NSS 1000 IV (05:38)
[2024-10-28 07:21] LABS: Glucose - Point of Care 191 mg/dl (70-99)
[2024-10-28 07:30] VITALS: BP 160/87
[2024-10-28] MEDS: NOVOLOG FLEXPEN-LOW RESISTANCE 1 UNITS SC ×2 (07:40→13:44)
[2024-10-28 07:59] LABS: Hematocrit 36.4 % (39.0-52.0); Hemoglobin 12.5 g/dL (13.0-18.0); Mean Corp Hgb Conc. 34.3 g/dL (33.0-37.0); Mean Corpuscular Hgb 30.1 pg (27.0-31.0); Mean Corpuscular Volume 87.7 fL (80.0-94.0); Mean Platelet Volume 9.3 fL (7.4-10.4); Platelet Count 271 10^3/uL (130-400); Red Blood Cell Count 4.15 10^6/uL (4.70-6.10); Red Cell Dist. Width 13.2 % (11.5-14.5); White Blood Cell Count 9.2 10^3/uL (4.8-10.8)
[2024-10-28 08:16] LABS: Absolute Neutrophils -Man Diff 7.4 10^3/uL (1.4-6.5); Band Neutrophils 11 % (0-3); Lymphocytes 15 % (20-51); Monocytes 4 % (2-9); Platelets Checked Yes; Segmented Neutrophils 70 % (42-75)
[2024-10-28 08:17] LABS: Normal RBC Morphology Yes; Total Cells Counted 100
[2024-10-28 08:22] LABS: Blood Urea Nitrogen 19 mg/dl (9-20); Calcium 8.4 mg/dl (8.4-10.2); Carbon Dioxide 23 mmol/L (22-30); Chloride 102 mmol/L (98-107); Estimated Creatinine Clearance 93 ml/min; Glucose 209 mg/dl (70-99); Potassium 4.4 mmol/L (3.5-5.1); Sodium 133 mmol/L (135-145); eGFR > 60.00
--- NOTE | 2024-10-28 09:18 | W.PN.HOSP.TC ---
Today's Communication/Plan
-
Flex Sigmoid. IV steroids. CRS consult.
Assessment / Plan
Assessment / Plan
Physical Exam
General: Acutely ill
HEENT: Anicteric and Moist mucous membranes
Respiratory: Clear and Non Labored Respirations
Cardiac: S1/S2 and Regular Rhythm
GI: Soft and Tender (Mild throughout slightly greater on right than left; No rebound or guarding)
Rectal: Deferred by Provider
Musculoskeletal: No Clubbing, No Cyanosis and No Edema
Skin: Warm and Dry
Neuro: Awake, Alert, Oriented and Nonfocal/grossly intact
Psych: Calm
A/P:
Persistent Bloody Diarrhea due to worsening Ulcerative Colitis Flare (despite oral steroids/biological-Entyvio)
-GI consult appreciated
-Continue Solu-Medrol 20 mg IV every 8 hours
-Low residue per GI but consider NPO status if worsens
-Colorectal surgery consult-discussed with CRS today
-Flex Sigmoid shows worsening colitis--> IV steroids, f/u cultures, consider starting different biological agent ?Rinvoq ?Cyclosporine etc, CRS consult.
-GI considering ID eval
-C Diff negative. Stool cultures pending.
-Discussed with at bedside
Hyperglycemia
-Patient reports pre-diabetes with HgbA1c ~6.2 for the past several years which he has controlled with diet
-Sugars are uncontrolled in setting of steroids
-Checked HgbA1c, 7.8
-Monitor sugars and continue coverage insulin
Coronary Artery Disease s/p Stent
-Aspirin on hold in setting of bloody diarrhea
Hyperlipidemia
-Continue atorvastatin
DVT proph: Lovenox SQ (high risk VTE due to IBD-would only hold if significant drop Hb and bleed)
Code Status: Full Code
Total time spent on today's encounter was 52 minutes which included time spent in counseling the patient/family regarding diagnosis and treatment plan as listed above, goals of care, and symptom management. Case was discussed with nursing staff,
specialists, and care coordinators/case management. All labs and imaging personally reviewed by me. Remainder the time spent in detailed review of previous records, lab data, imaging, and other medical provider documentation.
Anticipated Discharge: > 48 hours
Subjective/Interval History
-
Date of Service: October 28, 2024
Patient still having bloody stools, abd discomfort on and off. Afebrile
Objective Data
-
Labs:
Laboratory Results
10/28/24
07:40
WBC 9.2
Hgb 12.5 L
Hct 36.4 L
Plt Count 271
Sodium 133 L
Potassium 4.4
Chloride 102
Carbon Dioxide 23
BUN 19
Creatinine 0.8
Glucose 209 H
Calcium 8.4
Vital Signs:
Vital Signs
Temp Pulse Resp BP Pulse Ox
98.4 F 69 18 160/87 94
10/28/24 07:30 10/28/24 07:30 10/28/24 07:30 10/28/24 07:30 10/28/24 07:30
I&O
10/27/24 10/28/24 10/29/24
06:59 06:59 06:59
Intake Total 240 / 240 1440 / 1440
Balance 240 / 240 1440 / 1440
[2024-10-28 11:33] VITALS: BP 123/74
[2024-10-28 11:45] VITALS: BP 121/78
[2024-10-28 11:45] LABS: Glucose - Point of Care 190 mg/dl (70-99)
[2024-10-28 15:00] VITALS: BP 143/72
[2024-10-28 17:00] LABS: Glucose - Point of Care 277 mg/dl (70-99)
[2024-10-28] MEDS: LOVENOX 40 MG SC (17:26)
[2024-10-28] MEDS: NOVOLOG FLEXPEN-LOW RESISTANCE 3 UNITS SC (17:26)
[2024-10-28] MEDS: LIPITOR 40 MG PO (17:27)
--- NOTE | 2024-10-28 18:50 | CON.CRS ---
Consultation
-
Performing Provider: Ulises Coronado MD
Reason for Consultation: refractory UC
Medical History
-
History of Present Illness:
64-year-old male with PMH of CAD (s/p stents, on aspirin), HLD, prediabetes, C. difficile, UC (diagnosed greater than 10 years ago, under the care of of Dr. Odom as an outpatient; has been on 5�ASA and infliximab; last colonoscopy was 05/2024 by
Lei, which showed persistent inflammation; patient was switched to Entyvio and his last dose was 10/19) who presents for persistent multiple episodes of bloody diarrhea. He for started having an issue shortly after starting Entyvio in August
2023. By the end of August, he was started on an oral prednisone taper which initially improved his symptoms. However, when he was down to 10 mg a day, his symptoms had worsened. Therefore, Dr. Odom put him back on 30 mg daily starting 10/19,
which was also the same day of his last Entyvio dose. He unfortunately continued having bloody diarrhea with mild abdominal pain. Therefore, he presented to the ED. He denies any fevers, CP/SOB or urinary symptoms. His WBC was 8.8. A CT scan
was done showing pancolitis without free air or thickening of the TI. He was started on IV Solu-Medrol and underwent sigmoidoscopy today for biopsies, which showed severe colitis from the rectum to descending colon. Biopsies were sent for CMV. He
has been tolerating a diet, but states that when he eats, his diarrhea will be more frequent.
Past Medical History
Past Medical History: Other (As above)
Past Surgical History: None
Social History
Tobacco: Former Smoker
Alcohol: Occasional
Drug: None
Family History
Family History: Other (Denies family history of IBD/CRC)
Allergies / Home Medications
Allergy/AdvReac Type Severity Reaction Status Date / Time
buckwheat Allergy Shortness Verified 10/26/24 20:15
of Breath
flaxseed Allergy Shortness Verified 10/26/24 20:15
of Breath
Iodinated Contrast Media Allergy IV Verified 10/26/24 20:15
[Iodinated Contrast Media - DYE-ANAPHYLAXIS
Oral and]
�Medication �Instructions �Recorded �Confirmed �Type
atorvastatin 40 mg tablet 40 mg PO QPM 01/03/17 10/26/24 History
epinephrine 0.3 mg/0.3 mL 0.3 mg (0.3 mL) IM PRN PRN 01/03/22 10/26/24 Rx
injection, auto-injector (EpiPen) Allergic reation ##1
prednisone 20 mg tablet 20 mg PO DAILY Allergies #3 tabs 01/03/22 10/26/24 Rx
aspirin 81 mg chewable tablet 162 mg PO DAILY 10/26/24 10/26/24 History
cholecalciferol (vitamin D3) 50 50 mcg PO DAILY 10/26/24 10/26/24 History
mcg (2,000 unit) capsule (Vitamin
D3)
Review of Systems
-
A 10 point review of systems was completed, and was negative except as per HPI.
Physical Exam
Vital Signs
Temp 98.1 F 10/28/24 15:00
Pulse 75 10/28/24 15:00
Resp Rate 24 10/28/24 15:00
Blood pressure 143/72 10/28/24 15:00
SaO2 97 10/28/24 15:00
10/27/24 10/28/24 10/29/24
06:59 06:59 06:59
Actual Weight 77.111 kg 76.385 kg
Body Mass Index (BMI) 25.6
Lab Results / Allergies
10/28/24 07:40
10/28/24 07:40
WBC 9.2 10^3/uL (4.8-10.8) 10/28/24 07:40
Hgb 12.5 g/dL (13.0-18.0) L 10/28/24 07:40
Hct 36.4 % (39.0-52.0) L 10/28/24 07:40
Plt Count 271 10^3/uL (130-400) 10/28/24 07:40
Abs Immat Gran (auto) 0.1 10^3/uL (0-0.05) H 10/26/24 16:01
Neutrophils % 71.7 % (42.2-75.2) 10/26/24 16:01
Allergy/AdvReac Type Severity Reaction Status Date / Time
buckwheat Allergy Shortness Verified 10/26/24 20:15
of Breath
flaxseed Allergy Shortness Verified 10/26/24 20:15
of Breath
Iodinated Contrast Media Allergy IV Verified 10/26/24 20:15
[Iodinated Contrast Media - DYE-ANAPHYLAXIS
Oral and]
Physical Exam
General: Well Developed, Well Nourished, No Apparent Distress and Comfortable
HEENT: Normocephalic and Atraumatic
GI: Soft, Non Distended and Tender (Mildly tender diffusely to deep palpation, more so in the upper abdomen, no rebound or guarding)
Skin: Warm and Dry
Neuro: AO x 3
Data Reviewed
-
CT Scan: Image Personally Visualized and interpreted, Discussed with Physician (GI) and Discussed with Patient
Assessment / Plan
-
64-year-old male with PMH of CAD (s/p stents, on aspirin), HLD, prediabetes, C. difficile, UC (diagnosed greater than 10 years ago, under the care of of Dr. Odom as an outpatient; has been on 5�ASA and infliximab; last colonoscopy was 05/2024 by
[facility], which showed persistent inflammation; patient was switched to Entyvio 06/2024 and his last dose was 10/19) who presents for persistent multiple episodes of bloody diarrhea since end of August, started on an oral prednisone taper with initial
improvement, but then worsened and restarted on prednisone 30 mg daily on 10/19, presented to ED for lack of improvement. WBC was 8.8. A CT scan was done showing pancolitis without free air or thickening of the TI. He was started on IV Solu-Medrol
and underwent sigmoidoscopy 10/28 for biopsies, which showed severe colitis from the rectum to descending colon. Biopsies were sent for CMV
�Acute ulcerative colitis flare, refractory to oral steroids and Entyvio
�No hemodynamic instability or evidence of peritonitis; continue nonoperative measures
�Appreciate GI, agree with IV Solu-Medrol 20 mg every 8
�Sent for CRP and will trend; send for stool cultures; C. difficile negative, follow-up CMV
�Reviewed indications for elective surgery (i.e.�medically refractory) and urgent surgery (persistent flare despite medical therapy, worsening clinical status, complication of flare like perforation); currently, patient wants to maximize medical
therapy to avoid surgery if at all possible; I explained that there remained a few options to treat his acute flare but he does have evidence of improving already with the IV steroids; for example, he can be started on another biologic while
inpatient and even started on salvage therapy like cyclosporine infusion; explained that if he does not respond to above measures or gets clincally worsens, we will need to rediscuss surgery this admission; patient understood well and all questions
were answered
� Continue diet per GI; would consider clears versus NPO if he is not responding
� Minimize narcotics if possible
� Recommend DVT PPx due to elevated risk in IBD patients; if his hemoglobin drops due to his bloody diarrhea, would hold at that point
� Appreciate hospitalist
[2024-10-28 21:46] LABS: Glucose - Point of Care 255 mg/dl (70-99)
[2024-10-28 23:55] VITALS: BP 148/81
[2024-10-29] MEDS: SOLU-MEDROL PF 20 MG IV ×3 (01:07→17:57)
[2024-10-29 06:00] VITALS: BMI 25.0
--- NOTE | 2024-10-29 06:33 | W.PN.UPDATE ---
Update Note
Progress Note Update
BRIEF GI NOTE:
Had a very prolonged discussion with patient last evening, 10/28/2024, regarding his recent flex sig demonstrating disease progression with severe ulcerative colitis (Mccormick score 3) up to the descending colon with previous CT imaging revealing acute
severe perales-ulcerative colitis (ASUC).
Given my concern for disease progression and refractory symptoms to ongoing steroids (both p.o. and IV), prior history of primary nonresponse to IFX, and concern for nonresponse to Entyvio back on 06/2025 (last dose on 10/19) discussed potential
options of treatment at length last evening.
Discussed his potential options given concern for refractory ASUC which include either surgery or rescue medical therapy. He wishes to avoid surgery at all costs however he was appreciative and understood that meeting with a colorectal surgeon at
this juncture given the severity of his disease. Given his previous non-response to IFX (specifically, primary non-response with prior adequate IFX lvls and no ADA), would not be a candidate for IV Remicade while inpatient. The other potential
option is Upadacitinib (RINVOQ) 45 mg once daily for induction x 8 weeks given his severe UC as potential rescue therapy. However, this is not without risks particularly given his known history of CAD with a prior LA back in 2017 with cardiac
stents. Specifically, there is an increased risk of in people 50 years and older who have had at least 1 cardiovascular risk factor along with an increased risk of major cardiovascular events, such as a heart attack, stroke or . It is
important to note that this was specifically found in patients with rheumatoid arthritis and recent literature has demonstrated a safer safety profile in patients with IBD. However, given the black box warning given the increased risk of MACE and
his history of CAD I discussed this extensively with him. Additionally, I further discussed potential herpes zoster reactivation given his history of prior herpes zoster in the past which he notes several years ago with previous vaccination as
well. ID has also been consulted for consideration of potential prophylaxis given his history of prior herpes-zoster (Shingles) in the past and at increased risk for reactivation. Additionally, also discussed the risk factors including infection,
mortality from cardiovascular events, malignancy such as lymphoma, thrombosis, hypersensitivity, rare reports of GI perforation, zoster, neutropenia, anemia, lymphopenia, elevated LFTs, elevated lipids.
After prolonged discussion at the bedside with patient last evening he demonstrated clear understanding of these risks and wishes to again pursue maximal medical therapy in hopes of avoiding a potential colectomy/surgery. I did further discuss that
RINVOQ could be used as a potential bridge while he is in the hospital in hopes of getting his UC flare under control and inducing remission and could be possibly transitioned to a safer biologic such as anti-IL�23 with Rizankizumab (SKYRIZI) given
its overall better safety effect profile. This has been shown to induce and maintain remission in patients with ubraisal-ii-[id number] UC. Ultimately, this could be decided as an outpatient with his primary foundry process engineer, Dr. Odom. I do think
this is a reasonable approach particularly given his personal history of CAD (although again this was particularly found in patients with RA rather than IBD) and overall increased risk with RINVOQ. Furthermore, if he were not to respond to
anti-IL-23 therapy, he could potentially be restarted back on her Upadacitinib (RINVOQ) as there is no reported or known immunogenicity. Ultimately, again this can be further decided as an outpatient. After prolonged discussions with patient last
night while reviewing risks versus benefits, patient demonstrated clear understanding of these risks and wishes to pursue rescue therapy with RINVOQ in hopes of inducing remission and avoiding surgery.
Will start RINVOQ 45 once daily this admission. Have ordered lipid panel (as baseline), LFTs and CBC this AM.
See progress note for additional findings and recommendations.
[2024-10-29 07:15] LABS: Glucose - Point of Care 216 mg/dl (70-99)
--- NOTE | 2024-10-29 07:21 | W.PN.GI.CBS2 ---
Addendum entered and electronically signed by Efrain Greco DO 10/29/24 13:57:
I saw and examined the patient.
The WIRE SPIRAL BINDER's note was reviewed and I agree with the note.
Comment: Agree with the detailed note as below. See prior GI update note from earlier today for additional details as well. Fortunately, patient seems to be having some partial response to IV steroids, however still need a more definitive plan of
therapy given that he previously failed prolonged courses of oral prednisone along with Entyvio (last dose 10/19). Pathology results still pending from flex-sig to r/o underlying CMV. Discussed with pathology this afternoon and hoping to have results
this afternoon. ID has also further been consulted given his personal history of herpes Zoster as well and concern for increased risk of potential herpes zoster reactivation. Will start Rinvoq later this afternoon. In the meantime, will continue IV
steroids (day 3) along with trending inflammatory markers to further assess response as more objective data. Favor transitioning to oral steroids tomorrow once patient has been started on Rinvoq to assess response. Await fecal calprotectin, however
given his endoscopic findings during his flex-sig suspect this will be significantly elevated. Continue chemical VTE ppx with lovenox while inpatient given increased risk due to IBD flare along with starting RINVOQ later today. See rest of care as
outlined below.
GI will continue to follow. Have updated patient's primary Brand Advocate, Dr. Odom, as well.
Original Note:
Today's Communication / Plan
-
etiology of symptoms with concern for likely UC flare vs infectious r/o CVM vs other
repeat C-diff neg with recent outpatient cultures in August and September neg, repeat stool cx pending, CMV pending from flex
still with frequent stools minimal improvement with IV steroids
s/p flex with severe Mccormick 3 disease up to proximal descending colon
bx pending
cont methylprednisone 20mg Q 8 hours
cont management of hyperglycemia per medical team
CRP with rise during admission --10/27 31.7 then 10/28 26.5--will repeat in AM, /ESR 10/27 58 -- fecal ludmila pending
cont low residue diet as tolerated
cont Lovenox -- compression stocking as needed -- encouraged ambulation - discussed high risk for clots with active disease and increased with risk with Rinvoq
lipid panel/LFT's today pending noted normal on admission -- will need repeat lipid panel with Rinvoq therapy
see update noted with Dr. Greco with long discussion or risk(with hx SD/stent, prior zoster) benefits and alternatives, prior non response with Inflectra, not improved on Entyvio since 06/2024, minimal improvement with steroids PO and IV. s/p
surgical eval and pt wishes to hold off on surgery.
in addition to Dr. Greco reviewed I gave patient package insert on Rinvoq and patient information sheet from up to date-- likely to start later today awaiting ID eval (with hx Zoster) and hopefully CMV results
also discussed with hx cardiac disease Rinvoq as bridge for remission then initiate other therapy with IL-23 therapy
all questions answered
Assessment / Plan
-
Pt is a 64yo with hx CAD with prior SD and stent, pilonidal cyst with prior surgery, c-diff, herpes zoster, NIDDM, longstanding ulcerative colitis with prior use of Mesalamine agent then inflectra. He was noted with some elevation on fecal ludmila up
to 1340 in February then proceed with colonoscopy in May with pancolitis with friability, erosions and acute/chronic inflammation. he was started on Entyvio in June but fecal ludmila continued to elevate to 3880 in August. He was placed on
outpatient steroids and 10/22 c-diff was neg with also neg c-diff, O+p, stool cx in August. He now presents with continued blood diarrhea with 10-12 stools per day. On admission noted with hbg 14, platelets 308, glucose 304 with otherwise stable
labs. Ct on admission with Moderate contiguous wall thickening involving the colon, extending from the rectum through the inferior cecum. Findings are compatible with the given clinical history of ulcerative colitis. No significant wall thickening
is seen involving the ileum. No evidence for bowel obstruction or free intraperitoneal air. There is no significant free pelvic fluid.
10/28/24 flex sig - Severe (Mccormick Score 3) ulcerative colitis up to the
proximal descending colon, worsened since the last
examination.
- Multiple biopsies were obtained in the rectum, in
the sigmoid colon and in the descending colon to rule
out CMV (sent for aguilera)
-ulcerative colitis flare with elevated fecal ludmila and rectal bleeding
-rectal to cecal inflammation on CT
-wt loss
other med problems:
-CAD with prior SD/stent
-hx c-diff
-NIDDM on medication but some FBS elevation with steroid use
-hx herpes Zoster
-pilonidal cyst
PLAN:
etiology of symptoms with concern for likely UC flare vs infectious r/o CVM vs other
repeat C-diff neg with recent outpatient cultures in August and September neg, repeat stool cx pending, CMV pending from flex
still with frequent stools minimal improvement with IV steroids
s/p flex with severe Mccormick 3 disease up to proximal descending colon
bx pending
cont methylprednisone 20mg Q 8 hours
cont management of hyperglycemia per medical team
CRP with rise during admission --10/27 31.7 then 10/28 26.5--will repeat in AM, /ESR 10/27 58 -- fecal ludmila pending
cont low residue diet as tolerated
cont Lovenox -- compression stocking as needed -- encouraged ambulation - discussed high risk for clots with active disease and increased with risk with Rinvoq
lipid panel/LFT's today pending noted normal on admission -- will need repeat lipid panel with Rinvoq therapy
see update noted with Dr. Greco with long discussion or risk(with hx SD/stent, prior zoster) benefits and alternatives, prior non response with Inflectra, not improved on Entyvio since 06/2024, minimal improvement with steroids PO and IV. s/p
surgical eval and pt wishes to hold off on surgery.
in addition to Dr. Greco reviewed I gave patient package insert on Rinvoq and patient information sheet from up to date-- likely to start later today awaiting ID eval (with hx Zoster) and hopefully CMV results
also discussed with hx cardiac disease Rinvoq as bridge for remission then initiate other therapy with IL-23 therapy
all questions answered
Subjective
Subjective
Date of Service: October 29, 2024
low residue diet still 6 blood stools daily minimal abdominal pain
Objective
Data Reviewed
Laboratory Data:
Laboratory Results
PT 13.0 Sec (11.4-14.6) 10/26/24 16:01
INR 0.95 10/26/24 16:01
APTT 23.8 Sec (23.4-35.0) 10/26/24 16:01
Total Bilirubin 0.4 mg/dl (0.2-1.3) 10/26/24 16:01
AST 20 U/L (17-59) 10/26/24 16:01
ALT 26 U/L (0-50) 10/26/24 16:01
Alkaline Phosphatase 113 U/L (38-126) 10/26/24 16:01
Lipase 194 U/L (23-300) 10/26/24 16:01
Vital Signs and I&O:
Vital Signs
Temp Pulse Resp BP Pulse Ox
97.7 F 66 16 148/81 96
10/28/24 23:55 10/28/24 23:55 10/28/24 23:55 10/28/24 23:55 10/28/24 23:55
I&O
10/28/24 10/29/24 10/30/24
06:59 06:59 06:59
Intake Total 1440 / 1440 1100 / 1100
Balance 1440 / 1440 1100 / 1100
Physical Exam
Physical Exam
HEENT: Anicteric and Moist mucous membranes
Cardiology: Normal Sinus Rhythm
Pulmonary: Clear
GI: Soft, Non Distended and Non Tender
Extremities: No Edema
Neuro: Non Focal
[2024-10-29 07:30] VITALS: BP 146/76
[2024-10-29] MEDS: NOVOLOG FLEXPEN-LOW RESISTANCE 2 UNITS SC (08:40)
[2024-10-29 08:42] LABS: Hematocrit 39.3 % (39.0-52.0); Hemoglobin 13.3 g/dL (13.0-18.0); Mean Corp Hgb Conc. 33.8 g/dL (33.0-37.0); Mean Corpuscular Hgb 29.7 pg (27.0-31.0); Mean Corpuscular Volume 87.7 fL (80.0-94.0); Mean Platelet Volume 9.4 fL (7.4-10.4); Platelet Count 281 10^3/uL (130-400); Red Blood Cell Count 4.48 10^6/uL (4.70-6.10); Red Cell Dist. Width 13.1 % (11.5-14.5); White Blood Cell Count 8.6 10^3/uL (4.8-10.8)
[2024-10-29 08:47] LABS: ALT (SGPT) 23 U/L (0-50); AST (SGOT) 18 U/L (17-59); Albumin 3.1 g/dl (3.5-5.0); Alkaline Phosphatase 84 U/L (38-126); Blood Urea Nitrogen 19 mg/dl (9-20); Calcium 8.3 mg/dl (8.4-10.2); Carbon Dioxide 27 mmol/L (22-30); Chloride 99 mmol/L (98-107); Estimated Creatinine Clearance 82 ml/min; Glucose 225 mg/dl (70-99); HDL Cholesterol 62 mg/dl; LDL Cholesterol, Calculated 77 mg/dl; Magnesium 2.3 mg/dl (1.6-2.3); Phosphorus 4.2 mg/dl (2.5-4.5); Potassium 4.5 mmol/L (3.5-5.1); Sodium 134 mmol/L (135-145); Total Bilirubin 0.7 mg/dl (0.2-1.3); Total Cholesterol 159 mg/dl (50-199); Total Protein 6.1 g/dl (6.3-8.2); Triglyceride 103 mg/dl (10-149); Very Low Density Lipoprotein 20 mg/dl (0-30); eGFR > 60.00
--- NOTE | 2024-10-29 09:10 | W.PN.HOSP.TC ---
Today's Communication/Plan
-
IV steroids. Biological agent consideration. ID eval
Assessment / Plan
Assessment / Plan
Physical Exam
General: Acutely ill
HEENT: Anicteric and Moist mucous membranes
Respiratory: Clear and Non Labored Respirations
Cardiac: S1/S2 and Regular Rhythm
GI: Soft and Tender (Mild throughout slightly greater on right than left; No rebound or guarding)
Rectal: Deferred by Provider
Musculoskeletal: No Clubbing, No Cyanosis and No Edema
Skin: Warm and Dry
Neuro: Awake, Alert, Oriented and Nonfocal/grossly intact
Psych: Calm
A/P:
Persistent Bloody Diarrhea due to worsening Ulcerative Colitis Flare (despite oral steroids/biological-Entyvio)
-GI consult appreciated
-Continue Solu-Medrol 20 mg IV every 8 hours
-Low residue per GI but consider NPO status if worsens
-Colorectal surgery consult-discussed with CRS today
-Flex Sigmoid shows worsening colitis--> IV steroids, f/u cultures, consider starting different biological agent ?Rinvoq ?Cyclosporine etc, CRS consult.
-GI considering ID eval
-C Diff negative. Stool cultures pending.
-Discussed with at bedside
Hyperglycemia
-Patient reports pre-diabetes with HgbA1c ~6.2 for the past several years which he has controlled with diet
-Sugars are uncontrolled in setting of steroids
-Checked HgbA1c, 7.8
-Monitor sugars and continue coverage insulin
- Start Lantus 15 units while hospitalized and on iv steroids
Coronary Artery Disease s/p Stent
-Aspirin on hold in setting of bloody diarrhea
Hyperlipidemia
-Continue atorvastatin
DVT proph: Lovenox SQ (high risk VTE due to IBD-would only hold if significant drop Hb and bleed)
Code Status: Full Code
Total time spent on today's encounter was 52 minutes which included time spent in counseling the patient/family regarding diagnosis and treatment plan as listed above, goals of care, and symptom management. Case was discussed with nursing staff,
specialists, and care coordinators/case management. All labs and imaging personally reviewed by me. Remainder the time spent in detailed review of previous records, lab data, imaging, and other medical provider documentation.
Anticipated Discharge: > 48 hours
Subjective/Interval History
-
Date of Service: October 29, 2024
Patient feels better today although still having some bloody stools. Less abdominal pain. Afebrile
Objective Data
-
Labs:
Laboratory Results
10/29/24
07:21
WBC 8.6
Hgb 13.3
Hct 39.3
Plt Count 281
Sodium 134 L
Potassium 4.5
Chloride 99
Carbon Dioxide 27
BUN 19
Creatinine 0.9
Glucose 225 H
Calcium 8.3 L
Total Bilirubin 0.7
AST 18
ALT 23
Alkaline Phosphatase 84
Vital Signs:
Vital Signs
Temp Pulse Resp BP Pulse Ox
97.7 F 56 16 146/76 95
10/29/24 07:30 10/29/24 07:30 10/29/24 07:30 10/29/24 07:30 10/29/24 07:30
I&O
10/28/24 10/29/24 10/30/24
06:59 06:59 06:59
Intake Total 1440 / 1440 1100 / 1100
Balance 1440 / 1440 1100 / 1100
[2024-10-29] MEDS: LANTUS 0.15 UNITS SC (09:41)
[2024-10-29 10:47] LABS: Absolute Neutrophils -Man Diff 6.2 10^3/uL (1.4-6.5); Band Neutrophils 19 % (0-3); Segmented Neutrophils 54 % (42-75)
[2024-10-29 10:48] LABS: Lymphocytes 17 % (20-51); Monocytes 9 % (2-9); Myelocytes 1 % (-); Platelets Checked YES
[2024-10-29 10:49] LABS: Normal RBC Morphology No
[2024-10-29 10:50] LABS: Target Cells FEW; Total Cells Counted 100
[2024-10-29 11:52] LABS: Glucose - Point of Care 334 mg/dl (70-99)
[2024-10-29] MEDS: NOVOLOG FLEXPEN-LOW RESISTANCE 4 UNITS SC (13:34)
--- NOTE | 2024-10-29 14:28 | CON.ID ---
Consultation
-
Date/Time Consultation Requested: 10/28/2024 1749
Date/Time Consultation Performed: 10/29/2024 1330
Requesting Provider: GILA Clark
Performing Provider: Dr. Dobbs
Reason for Consultation: ?VZV prophylaxis
Chief Complaint / Past History
History of Present Illness
Davidson Bettencourt is a 64-year-old man with a significant past medical history of advanced ulcerative colitis being evaluated regarding need for VZV prophylaxis in the context of potentially starting Rinvoq.
The patient reports he has had ulcerative colitis for many years and he has been closely followed by gastroenterology. He notes that he has been on multiple different Biologics including Humira, followed by Remicade followed by Renee. He notes
that he has had bloody diarrhea since approximately September 17, and presented to the emergency room on 10/26 secondary to worsening bloody diarrhea which she notes is up to 10 or 12 bowel movements per day. Despite steroids, the bloody diarrhea
persists. According to reviewed notes, Rinvoq may be started, and there is some concern about his history of shingles.
The patient reports that he recalls that he had shingles on his right chest in 2016, and may have had a similar episode in the same spot in 2019. He notes that the outbreaks are not especially painful. He has never had PCR testing to determine the
actual virus, though. At present, he denies any fevers or chills. He notes mild abdominal discomfort.
Past History
Additional Past Medical History:
Crohn's disease
Asthma
Prediabetes
CAD; Hx AK
Nephrolithiasis
Basal cell skin cancer
Additional Past Surgical History:
PCI with stenting
Mohs procedure
Pilonidal cyst
Allergy History:
buckwheat Allergy (Verified 10/26/24 20:15)
Shortness of Breath
flaxseed Allergy (Verified 10/26/24 20:15)
Shortness of Breath
Iodinated Contrast Media [Iodinated Contrast Media - Oral and] Allergy (Verified 10/26/24 20:15)
IV DYE-ANAPHYLAXIS
Medications Reviewed: Yes
Current Antibiotics:
None
Social History
Tobacco: Former Smoker
Alcohol: Occasional
Drug: None
Personal:
Living: With Family
Employment: Retired
Family History
Family History: Not Pertinent
Review of Systems
Vital Signs
Temp Pulse Resp BP Pulse Ox
97.7 F 56 16 146/76 95
10/29/24 07:30 10/29/24 07:30 10/29/24 07:30 10/29/24 07:30 10/29/24 08:00
Physical Exam
Physical Exam
Constitutional: No Acute Distress, Comfortable and Non-toxic
Head: Normocephalic
Eyes: Pupils Equal, Pupils Round, No Conjunctival Hemorrhage and Sclera Anicteric
Oral: No Thrush and No Ulcers
Cardiovascular: Regular Rate and S1/S2; Negative S3/S4
Pulmonary: Clear; Negative Wheezes, Rales or Rhonchi
Gastrointestinal: Soft, Non Tender, Non Distended, Normal Bowel Sounds, No Rebound and No Guarding
Extremities: Negative Edema, Cyanosis or Erythema
Neurological: Awake and Alert
Psychological: Calm
Lab / Diagnostic Study Results
10/29/24 07:21
10/29/24 07:21
Abs Immat Gran (auto) 0.1 10^3/uL (0-0.05) H 10/26/24 16:01
Absolute Neuts (auto) 6.3 10^3/uL (1.4-6.5) 10/26/24 16:01
Absolute Lymphs (auto) 2.0 10^3/uL (1.2-3.4) 10/26/24 16:01
Absolute Monos (auto) 0.4 10^3/uL (0.1-0.6) 10/26/24 16:01
Absolute Basos (auto) 0.0 10^3/uL (0-0.2) 10/26/24 16:01
Total Counted 100 10/29/24 07:21
Immature Gran % 0.7 % (0-0.5) H 10/26/24 16:01
Neutrophils % 71.7 % (42.2-75.2) 10/26/24 16:01
Lymphocytes % 22.7 % (20.5-51.1) 10/26/24 16:01
Monocytes % 4.1 % (1.7-9.3) 10/26/24 16:01
Eosinophils % 0.3 % (0-6) 10/26/24 16:01
Basophils % 0.5 % (0-2) 10/26/24 16:01
Abs Neuts (Manual) 6.2 10^3/uL (1.4-6.5) 10/29/24 07:21
Segmented Neutrophils 54 % (42-75) 10/29/24 07:21
Band Neutrophils 19 % (0-3) H D 10/29/24 07:21
Lymphocytes (Manual) 17 % (20-51) L 10/29/24 07:21
ESR 58 mm/hour (0-20) H 10/27/24 07:49
PT 13.0 Sec (11.4-14.6) 10/26/24 16:01
INR 0.95 10/26/24 16:01
C-Reactive Protein 36.50 mg/L (0.0-10.00) H 10/28/24 07:40
Microbiology Results
Micro:
10/28/24 20:29 Salmonella/Shigella Culture - Pending
Feces/Stool Campylobacter Culture - Pending
Shiga Toxin Test - Pending
10/26/24 20:46 C. difficile GDH Antigen & Toxins - Final
Feces/Stool Negative for toxigenic C.difficile
Imaging:
10/26/2024 CT abdomen/pelvis with oral contrast: Moderate contiguous wall thickening involving the colon, extending from the rectum to the inferior cecum. Findings compatible with a given clinical history of ulcerative colitis. No significant wall
thickening is seen involving the ileum. No evidence for bowel obstruction or intraperitoneal free air. No significant free pelvic fluid. Multiple small bilateral nephroliths, with no evidence for ureteral calculus. Please see full dictation for
additional detail.
Assessment / Plan
Severe Crohn's disease
-Anticipated initiation of Rinvoq
Ongoing bloody diarrhea
Hx (reported) shingles
Asthma
Prediabetes
CAD; Hx AK
Nephrolithiasis
Basal cell skin cancer
Recommendations:
Ideally, patient should receive shingles vaccination prior to initiation of Rinvoq. Will need to review product literature and/or discuss with company about timing if Rinvoq is started first.
No clear data on initiation of VZV prophylaxis, although extrapolation from other data indicate that prophylaxis with Valtrex 500 mg twice daily may be done. This should be balanced against the history of only 2 episodes of skin lesions since 2017
despite multiple other Biologics being used.
After discussing with patient, he will decide on whether he not actually would like to initiate prophylaxis.
Should the patient develop an outbreak of lesions, would PCR test them to identify the specific virus (HSV versus VZV).
Care Review
Plan reviewed with: Physician (GI)
[2024-10-29 15:00] VITALS: BP 165/86
--- NOTE | 2024-10-29 15:36 | CM ---
CM received chart, received call from Antonina case specialist through [employer] regarding discharge planning for patient [phone], option 1, ext [phone]. GI following patient. CM will continue to follow for all discharge planning needs.
Plan; home when stable likely, watch for VN needs.
[2024-10-29 16:53] LABS: Glucose - Point of Care 270 mg/dl (70-99)
[2024-10-29] MEDS: NON-FORMULARY ITEM 45 MG PO (17:56)
[2024-10-29] MEDS: LOVENOX 40 MG SC (17:56)
[2024-10-29] MEDS: NOVOLOG FLEXPEN-LOW RESISTANCE 3 UNITS SC (17:57)
[2024-10-29] MEDS: LIPITOR 40 MG PO (17:57)
[2024-10-29 21:42] LABS: Glucose - Point of Care 403 mg/dl (70-99)
[2024-10-29 22:22] LABS: Glucose 350 mg/dl (70-99)
[2024-10-29] MEDS: NOVOLOG FLEXPEN 5 UNITS SC (23:11)
[2024-10-29 23:22] VITALS: BP 137/77
[2024-10-30] MEDS: SOLU-MEDROL PF 20 MG IV ×2 (02:22→10:41)
[2024-10-30 05:54] VITALS: BMI 24.7
[2024-10-30 07:00] VITALS: BP 148/81
[2024-10-30 07:52] LABS: Hematocrit 40.6 % (39.0-52.0); Hemoglobin 13.9 g/dL (13.0-18.0); Mean Corp Hgb Conc. 34.2 g/dL (33.0-37.0); Mean Corpuscular Hgb 29.9 pg (27.0-31.0); Mean Corpuscular Volume 87.3 fL (80.0-94.0); Mean Platelet Volume 9.5 fL (7.4-10.4); Platelet Count 299 10^3/uL (130-400); Red Blood Cell Count 4.65 10^6/uL (4.70-6.10); Red Cell Dist. Width 13.2 % (11.5-14.5); White Blood Cell Count 9.2 10^3/uL (4.8-10.8)
[2024-10-30 07:55] LABS: Glucose - Point of Care 201 mg/dl (70-99)
[2024-10-30 08:26] LABS: Blood Urea Nitrogen 24 mg/dl (9-20); Calcium 8.8 mg/dl (8.4-10.2); Carbon Dioxide 27 mmol/L (22-30); Chloride 98 mmol/L (98-107); Estimated Creatinine Clearance 82 ml/min; Glucose 220 mg/dl (70-99); Potassium 4.6 mmol/L (3.5-5.1); Sodium 132 mmol/L (135-145); eGFR > 60.00
[2024-10-30] MEDS: NON-FORMULARY ITEM 45 MG PO (08:33)
[2024-10-30] MEDS: NOVOLOG FLEXPEN-LOW RESISTANCE 2 UNITS SC (08:34)
[2024-10-30] MEDS: LANTUS 0.15 UNITS SC (08:34)
--- NOTE | 2024-10-30 08:47 | W.PN.CRS1 ---
Today's Communication / Plan
-
As below
Assessment/Plan
-
64-year-old male with PMH of CAD (s/p stents, on aspirin), HLD, prediabetes, C. difficile, UC (diagnosed greater than 10 years ago, under the care of of Dr. Odom as an outpatient; has been on 5�ASA and infliximab; last colonoscopy was 05/2024 by
Lei, which showed persistent inflammation; patient was switched to Entyvio 06/2024 and his last dose was 10/19) who presents for persistent multiple episodes of bloody diarrhea since end august, started on an oral prednisone taper with initial
improvement, but then worsened and restarted on prednisone 30 mg daily on 10/19, presented to ED for lack of improvement. WBC was 8.8. A CT scan was done showing pancolitis without free air or thickening of the TI. He was started on IV Solu-Medrol
and underwent sigmoidoscopy 10/28 for biopsies, which showed severe colitis from the rectum to descending colon. Biopsies were sent for CMV
AFVSS
WBC 9.2, Hb 13.9, CRP 23.6 from 36.5
�Acute ulcerative colitis flare, refractory to oral steroids and Entyvio
�No hemodynamic instability or evidence of peritonitis; continue nonoperative measures
�Appreciate GI; cont IV solumedrol and Rinvoq (started 10/29)
�CRP downtrending today
�C. difficile and CMV negative; stool cultures pending
�Pt still would like to exhaust medical management prior to considering surgical interventions; explained that Rinvoq may take several days and will monitor his response at the direction of GI
� Continue diet per GI
� Minimize narcotics if possible
� Continue DVT PPx
� Appreciate hospitalist
Colorectal to follow peripherally; please call for any questions or concerns; if patient is discharged over the weekend, recommend follow-up with me in 2 to 4 weeks
Subjective Data
Subjective Data
Date of Service: October 30, 2024
No overnight events.
Denies nausea or vomiting. Appetite has improved since 2 days ago.
Voiding. Still having 6-8 BMs per day with some blood. Overall improved from admission.
Pain also seems to be improving and has less cramping with p.o. intake.
Objective Data
-
Vital Signs
Temp Pulse Resp BP Pulse Ox
97.5 F 54 18 137/77 97
10/29/24 23:22 10/29/24 23:22 10/29/24 23:22 10/29/24 23:22 10/29/24 23:22
Intake & Output
10/29/24 10/30/24 10/31/24
06:59 06:59 06:59
Intake Total 1100 / 1100 1320 / 1320
Balance 1100 / 1100 1320 / 1320
Intake:
Oral fluids 600 / 600 1320 / 1320
IV fluids (Total) 500 / 500 0 / 0
IV piggybacks 0 / 0
Other:
Number of approximated MODERATE 3 1
amounts of urine
Lab Results
10/30/24 07:42
10/30/24 07:42
Physical Exam
-
General: No Acute Distress and AOx3
HEENT: Grossly Normal
Abdomen: Soft, Non Distended, Tender (Minimally tender to palpation diffusely), No Guarding and No Rebound
Skin: Warm and Dry
--- NOTE | 2024-10-30 09:34 | W.PN.HOSP.TC ---
Today's Communication/Plan
-
IV steroids.
Assessment / Plan
Assessment / Plan
Physical Exam
General: Acutely ill
HEENT: Anicteric and Moist mucous membranes
Respiratory: Clear and Non Labored Respirations
Cardiac: S1/S2 and Regular Rhythm
GI: Soft and Tender (Mild throughout slightly greater on right than left; No rebound or guarding)
Rectal: Deferred by Provider
Musculoskeletal: No Clubbing, No Cyanosis and No Edema
Skin: Warm and Dry
Neuro: Awake, Alert, Oriented and Nonfocal/grossly intact
Psych: Calm
A/P:
Persistent Bloody Diarrhea due to worsening Ulcerative Colitis Flare (despite oral steroids/biological-Entyvio)
-GI consult appreciated
-Continue Solu-Medrol 20 mg IV every 8 hours
-Low residue per GI but consider NPO status if worsens
-Colorectal surgery consult-discussed with CRS and patient would like to continue with medical options.
-Flex Sigmoid shows worsening colitis--> IV steroids, f/u cultures, consider starting different biological agent ?Rinvoq ?Cyclosporine etc, CRS consult.
-GI consulted ID and reviewed their input
-C Diff negative. Stool cultures pending. CMV cultures are negative
-Discussed with at bedside prior
-Patient has been initiated on Rinvoq since 10/29
Hyperglycemia
-Patient reports pre-diabetes with HgbA1c ~6.2 for the past several years which he has controlled with diet
-Sugars are uncontrolled in setting of steroids
-Checked HgbA1c, 7.8
-continue coverage insulin
- Start Lantus 15 units while hospitalized and on iv steroids and now add 5 units Novolog ac. Continue to monitor sugars closely
Coronary Artery Disease s/p Stent
-Aspirin on hold in setting of bloody diarrhea but most likely restart over the next 24 to 48 hours.
Hyperlipidemia
-Continue atorvastatin
DVT proph: Lovenox SQ (high risk VTE due to IBD-would only hold if significant drop Hb and bleed)
Code Status: Full Code
Anticipated Discharge: 24 - 48 hours
Subjective/Interval History
-
Date of Service: October 30, 2024
Patient feels better today, less bloody bowel movements, denies abdominal discomfort. No nausea or vomiting. Afebrile
Objective Data
-
Labs:
Laboratory Results
10/29/24 10/30/24
21:58 07:42
WBC 9.2
Hgb 13.9
Hct 40.6
Plt Count 299
Sodium 132 L
Potassium 4.6
Chloride 98
Carbon Dioxide 27
BUN 24 H
Creatinine 0.9
Glucose 350 H 220 H
Calcium 8.8
Vital Signs:
Vital Signs
Temp Pulse Resp BP Pulse Ox
97.5 F 54 18 137/77 97
10/29/24 23:22 10/29/24 23:22 10/29/24 23:22 10/29/24 23:22 10/29/24 23:22
I&O
10/29/24 10/30/24 10/31/24
06:59 06:59 06:59
Intake Total 1100 / 1100 1320 / 1320
Balance 1100 / 1100 1320 / 1320
[2024-10-30 10:29] LABS: Calprotectin, Fecal >3000 ug/g (<=49)
[2024-10-30] MEDS: NOVOLOG FLEXPEN 5 UNITS SC ×3 (10:52→17:47)
[2024-10-30 12:04] LABS: Glucose - Point of Care 250 mg/dl (70-99)
[2024-10-30] MEDS: NOVOLOG FLEXPEN-LOW RESISTANCE 3 UNITS SC (14:18)
--- NOTE | 2024-10-30 14:26 | W.PN.GI.CBS2 ---
Addendum entered and electronically signed by Tamara Fragoso MD 10/30/24 16:42:
I saw and examined the patient.
The [employer]'s note was reviewed and I agree with the note.
Comment: Patient's symptoms seem to be improving he has less abdominal pain today, diarrhea improved he only had 3 bowel movements today and also very minimal blood in the stool. today is day 2 of Rinvoq. Continue steroids switched to oral
prednisone and continue to taper as OP. He does have an appointment with Dr. Odom in 2 weeks. Told him to get the Shingrix vaccine(non- live vaccine) as outpatient since is not available as inpatient. noted input from ID. Patient wants to hold
on Valtrex prophylaxis for now. Given long-term steroid use would recommend bone density scan also as outpatient. Biopsies from flex sig were negative for CMV shows moderate chronic active colitis with ulceration and granulation tissue formation.
His LFTs and lipid panel at baseline from yesterday were normal will continue to monitor on therapy.
Original Note:
Today's Communication / Plan
-
etiology of symptoms with concern for likely UC flare -- CMV path neg
s/p flex 10/28 with severe Mccormick 3 disease up to proximal descending colon
moderate active colitis on path
OP stools neg, c-diff neg multiple checks and repeat stool cx inpatient pending
less stool with less blood and more form- slept 6 hours
Rinvoq started 10/29 with already improvement -- see prior notes of side effect reveiw/plan moving forward
on methylprednisone 20mg Q 8 hours will transition to Prednisone 25 mg BID
will add Pepcid with steroid use
discussed adding calcium and vitamin D if greater than 3 month steroid use now over 1 month use
cont management of hyperglycemia per medical team
CRP with now downward trend 31.7--36.5--23.6
cont low residue diet
cont Lovenox -- high risk for clots
lipid panel/LFT's stable baseline will need repeat lipid panel with Rinvoq therapy
appreciate ID [email or web address] -pt wishes to hold on prophylactic zoster treatement at this time to monitor for Rivoq side effects
office to call to arrange 3-4 week follow up
all questions answered - updated
Assessment / Plan
-
Pt is a 64yo with hx CAD with prior ND and stent, pilonidal cyst with prior surgery, c-diff, herpes zoster, NIDDM, longstanding ulcerative colitis with prior use of Mesalamine agent then inflectra. He was noted with some elevation on fecal ludmila up
to 1340 in February then proceed with colonoscopy in May with pancolitis with friability, erosions and acute/chronic inflammation. he was started on Entyvio in June but fecal ludmila continued to elevate to 3880 in August. He was placed on
outpatient steroids and 10/22 c-diff was neg with also neg c-diff, O+p, stool cx in August. He now presents with continued blood diarrhea with 10-12 stools per day. On admission noted with hbg 14, platelets 308, glucose 304 with otherwise stable
labs. Ct on admission with Moderate contiguous wall thickening involving the colon, extending from the rectum through the inferior cecum. Findings are compatible with the given clinical history of ulcerative colitis. No significant wall thickening
is seen involving the ileum. No evidence for bowel obstruction or free intraperitoneal air. There is no significant free pelvic fluid.
10/28/24 flex sig - Severe (Mccormick Score 3) ulcerative colitis up to the
proximal descending colon, worsened since the last
examination.
- Multiple biopsies were obtained in the rectum, in
the sigmoid colon and in the descending colon to rule
out CMV (sent for aguilera)
-ulcerative colitis flare with elevated fecal ludmila and rectal bleeding
-rectal to cecal inflammation on CT
-wt loss
other med problems:
-CAD with prior ND/stent
-hx c-diff
-NIDDM on medication but some FBS elevation with steroid use
-hx herpes Zoster
-pilonidal cyst
PLAN:
etiology of symptoms with concern for likely UC flare -- CMV path neg
s/p flex 10/28 with severe Mccormick 3 disease up to proximal descending colon
moderate active colitis on path
OP stools neg, c-diff neg multiple checks and repeat stool cx inpatient pending
less stool with less blood and more form- slept 6 hours
Rinvoq started 10/29 with already improvement -- see prior notes of side effect reveiw/plan moving forward
on methylprednisone 20mg Q 8 hours will transition to Prednisone 25 mg BID
will add Pepcid with steroid use
discussed adding calcium and vitamin D if greater than 3 month steroid use now over 1 month use
cont management of hyperglycemia per medical team
CRP with now downward trend 31.7--36.5--23.6
cont low residue diet
cont Lovenox -- high risk for clots
lipid panel/LFT's stable baseline will need repeat lipid panel with Rinvoq therapy
appreciate ID eval -pt wishes to hold on prophylactic zoster treatement at this time to monitor for Rivoq side effects
office to call to arrange 3-4 week follow up
all questions answered - updated
Subjective
Subjective
Date of Service: October 30, 2024
some improvement with less blood and some form to stools on low residue diet
Objective
Data Reviewed
Laboratory Data:
Laboratory Results
10/30/24 07:42
10/30/24 07:42
Laboratory Results
PT 13.0 Sec (11.4-14.6) 10/26/24 16:01
INR 0.95 10/26/24 16:01
APTT 23.8 Sec (23.4-35.0) 10/26/24 16:01
Phosphorus 4.2 mg/dl (2.5-4.5) 10/29/24 07:21
Magnesium 2.3 mg/dl (1.6-2.3) 10/29/24 07:21
Total Bilirubin 0.7 mg/dl (0.2-1.3) 10/29/24 07:21
AST 18 U/L (17-59) 10/29/24 07:21
ALT 23 U/L (0-50) 10/29/24 07:21
Alkaline Phosphatase 84 U/L (38-126) 10/29/24 07:21
Lipase 194 U/L (23-300) 10/26/24 16:01
Vital Signs and I&O:
Vital Signs
Temp Pulse Resp BP Pulse Ox
97.5 F 58 21 148/81 100
10/30/24 07:00 10/30/24 07:00 10/30/24 07:00 10/30/24 07:00 10/30/24 07:00
I&O
10/29/24 10/30/24 10/31/24
06:59 06:59 06:59
Intake Total 1100 / 1100 1320 / 1320 480 / 480
Balance 1100 / 1100 1320 / 1320 480 / 480
Physical Exam
Physical Exam
HEENT: Anicteric and Moist mucous membranes
Cardiology: Normal Sinus Rhythm
Pulmonary: Clear
GI: Soft, Non Distended and Non Tender
Extremities: No Edema
Neuro: Non Focal
[2024-10-30 15:00] VITALS: BP 139/79
[2024-10-30 16:46] LABS: Glucose - Point of Care 198 mg/dl (70-99)
[2024-10-30] MEDS: LIPITOR 40 MG PO (17:46)
[2024-10-30] MEDS: LOVENOX 40 MG SC (17:47)
[2024-10-30] MEDS: NOVOLOG FLEXPEN-LOW RESISTANCE 1 UNITS SC (17:48)
[2024-10-30 19:54] VITALS: BP 136/60
[2024-10-30] MEDS: DELTASONE 25 MG PO (20:53)
[2024-10-30 21:28] LABS: Glucose - Point of Care 191 mg/dl (70-99)
[2024-10-30 23:15] VITALS: BP 130/76
[2024-10-31 06:00] VITALS: BMI 24.6
[2024-10-31 07:45] VITALS: BP 131/88
[2024-10-31 07:50] LABS: Glucose - Point of Care 156 mg/dl (70-99)
[2024-10-31] MEDS: NOVOLOG FLEXPEN 5 UNITS SC ×3 (08:39→17:37)
[2024-10-31] MEDS: NOVOLOG FLEXPEN-LOW RESISTANCE 1 UNITS SC (08:41)
[2024-10-31] MEDS: DELTASONE 25 MG PO ×2 (08:42→21:21)
[2024-10-31] MEDS: LANTUS 0.15 UNITS SC (08:43)
[2024-10-31 08:44] LABS: Hemoglobin 13.7 g/dL (13.0-18.0); Mean Corp Hgb Conc. 34.3 g/dL (33.0-37.0); Mean Corpuscular Hgb 29.8 pg (27.0-31.0); Mean Platelet Volume 9.7 fL (7.4-10.4); Platelet Count 301 10^3/uL (130-400); White Blood Cell Count 12.7 10^3/uL (4.8-10.8)
[2024-10-31] MEDS: PEPCID 20 MG PO (08:44)
[2024-10-31] MEDS: NON-FORMULARY ITEM 45 MG PO (08:45)
--- NOTE | 2024-10-31 08:50 | W.PN.HOSP.TC ---
Today's Communication/Plan
-
Continue Rinvoq. Steroids
Assessment / Plan
Assessment / Plan
Physical Exam
General: Acutely ill
HEENT: Anicteric and Moist mucous membranes
Respiratory: Clear and Non Labored Respirations
Cardiac: S1/S2 and Regular Rhythm
GI: Soft and Tender (Mild throughout slightly greater on right than left; No rebound or guarding)
Rectal: Deferred by Provider
Musculoskeletal: No Clubbing, No Cyanosis and No Edema
Skin: Warm and Dry
Neuro: Awake, Alert, Oriented and Nonfocal/grossly intact
Psych: Calm
A/P:
Persistent Bloody Diarrhea due to worsening Ulcerative Colitis Flare (despite oral steroids/biological-Entyvio)
-GI consult appreciated
-IV steroids changed to oral steroids
-Low residue per GI
-Colorectal surgery consult-discussed with CRS and patient would like to continue with medical options.
-Flex Sigmoid shows worsening colitis--> IV steroids, f/u cultures, consider starting different biological agent ?Rinvoq ?Cyclosporine etc, CRS consult.
-GI consulted ID and reviewed their input
-C Diff negative. Stool cultures ok. CMV cultures are negative
-Discussed with at bedside prior
-Patient has been initiated on Rinvoq since 10/29
Hyperglycemia
-Patient reports pre-diabetes with HgbA1c ~6.2 for the past several years which he has controlled with diet
-Sugars are uncontrolled in setting of steroids
-Checked HgbA1c, 7.8
-continue coverage insulin
- Start Lantus 15 units while hospitalized and on iv steroids and now add 5 units Novolog ac. Continue to monitor sugars closely
-We went over several options upon discharge in terms of management of his diabetes mellitus. He might not need any particular medications but only lifestyle changes if the steroids are tapering and the sugars are going in the right direction but
will reevaluate over the next 24 hours.
Coronary Artery Disease s/p Stent
-Aspirin on hold in setting of bloody diarrhea but most likely restart over the next 24 to 48 hours.
Hyperlipidemia
-Continue atorvastatin
DVT proph: Lovenox SQ (high risk VTE due to IBD-would only hold if significant drop Hb and bleed)
Code Status: Full Code
Anticipated Discharge: 24 - 48 hours
Subjective/Interval History
-
Date of Service: October 31, 2024
Patient feels better, less bloody stools. No nausea or vomiting
Objective Data
-
Labs:
Laboratory Results
10/31/24
07:45
WBC 12.7 H
Hgb 13.7
Hct 40.0
Plt Count 301
Sodium Pending
Potassium Pending
Chloride Pending
Carbon Dioxide Pending
BUN Pending
Creatinine Pending
Glucose Pending
Calcium Pending
Vital Signs:
Vital Signs
Temp Pulse Resp BP Pulse Ox
98.0 F 63 16 130/76 94
10/30/24 23:15 10/30/24 23:15 10/30/24 23:15 10/30/24 23:15 10/30/24 23:15
I&O
10/30/24 10/31/24 11/01/24
06:59 06:59 06:59
Intake Total 1320 / 1320 1600 / 1600
Balance 1320 / 1320 1600 / 1600
--- NOTE | 2024-10-31 09:27 | W.PN.GI.CBS2 ---
Addendum entered and electronically signed by Rehana Franco DO 10/31/24 13:55:
Patient seen and examined independently of GILA. I agree with her note with my additions below.
Davidson is improving. He is now on day 3 of 45 mg induction Rinvoq as well as the 50mg oral prednisone.
He has had more form (still 'muddy') but much less blood and only 2 so far today. Just a few days ago he was having 10-12 bloody liquid bowel movements despite being on IV steroids.
He is tolerating food well, only complaining of some discomfort and queasiness after taking the prednisone. He was started on Pepcid which has helped.
We had long discussion regarding Rinvoq and potential Gibran inhibitor class side effects. Starting any medication is a risk-benefit discussion. The Gibran inhibitor class has a black box warning but the most up-to-date IBD literature shows that Gibran
inhibitors have no significant cardiovascular risks compared to placebo and there was no difference between TNF inhibitors as well. There is greater risk in him having continued flare and continued inflammation which drives cardiovascular risk
factors including DVT
--His options are somewhat limited and included Gibran inhibitors versus IL 23 inhibitors versus surgery
-- The IL 23 inhibitors would not work quick enough and you need to take that into the full picture. The severity of inflammation was significant.
-- According to the U-ACHIEVE trial there were more MACE events in the placebo groups that had uncontrolled inflammation. There was a slight increased risk in Venothromboembolism in the Rinvoq population.
PLAN:
-- continue induction Rinvoq 45mg x 8wks, then drop to maintenance dosing 30 mg
-- Continue Prednisone 50mg once daily x 1 wk, then drop by 10mg weekly until off - would do a quicker taper, but he's been on it since late Aug
-- consider Bactrim prophylaxis in patients on Rinvoq and steroids
-- high DVT risk in uncontrolled IBD so lovenox while here and move around well at home
-- has follow up with Dr. Odom on 11/18
-- home tomorrow
-- i gave him websites for IBD diet and information
-- ok for Shingrix at home
--No need for surgery
-- Can use Gaviscon at home feels gassy
Original Note:
Today's Communication / Plan
-
etiology of symptoms with concern for likely UC flare -- CMV path neg
s/p flex 10/28 with severe Mccormick 3 disease up to proximal descending colon
moderate active colitis on path
OP stools neg, c-diff neg multiple checks and repeat stool cx inpatient pending
Rinvoq started 10/29 with already improvement -- see prior notes of side effect review/plan moving forward
transitioned to Prednisone 25 mg BID 10/30 PM will need taper on discharge -- will have pt review with Dr. Franco with some difficulty with taper in past
monitor til tomorrow on PO steoid and aim for discharge in AM if continued improvement
cont Pepcid while on steroids-- some gastritis with first dose if needed can increased to BID -- hold PPI with hx c-diff
discussed adding calcium and vitamin D if greater than 3 month steroid use now over 1 month use consider OP dexa scan
cont management of hyperglycemia per medical team
CRP with now downward trend 31.7--36.5--23.6 -- 17.2
cont low residue diet
cont Lovenox -- high risk for clots
lipid panel/LFT's stable baseline will need repeat lipid panel with Rinvoq therapy
appreciate ID eval -pt wishes to hold on prophylactic zoster treatment at this time to monitor for Rivoq side effects -- OP shingrix vaccine non- live vaccine
pt scheduled follow up with Dr. Odom 11/18
Assessment / Plan
-
Pt is a 64yo with hx CAD with prior SC and stent, pilonidal cyst with prior surgery, c-diff, herpes zoster, NIDDM, longstanding ulcerative colitis with prior use of Mesalamine agent then inflectra. He was noted with some elevation on fecal ludmila up
to 1340 in February then proceed with colonoscopy in May with pancolitis with friability, erosions and acute/chronic inflammation. he was started on Entyvio in June but fecal ludmila continued to elevate to 3880 in August. He was placed on
outpatient steroids and 10/22 c-diff was neg with also neg c-diff, O+p, stool cx in August. He now presents with continued blood diarrhea with 10-12 stools per day. On admission noted with hbg 14, platelets 308, glucose 304 with otherwise stable
labs. Ct on admission with Moderate contiguous wall thickening involving the colon, extending from the rectum through the inferior cecum. Findings are compatible with the given clinical history of ulcerative colitis. No significant wall thickening
is seen involving the ileum. No evidence for bowel obstruction or free intraperitoneal air. There is no significant free pelvic fluid.
10/28/24 flex sig - Severe (Mccormick Score 3) ulcerative colitis up to the
proximal descending colon, worsened since the last
examination.
- Multiple biopsies were obtained in the rectum, in
the sigmoid colon and in the descending colon to rule
out CMV (sent for aguilera)
-ulcerative colitis flare with elevated fecal ludmila and rectal bleeding
-rectal to cecal inflammation on CT
-wt loss
other med problems:
-CAD with prior SC/stent
-hx c-diff
-NIDDM on medication but some FBS elevation with steroid use
-hx herpes Zoster
-pilonidal cyst
PLAN:
etiology of symptoms with concern for likely UC flare -- CMV path neg
s/p flex 10/28 with severe Mccormick 3 disease up to proximal descending colon
moderate active colitis on path
OP stools neg, c-diff neg multiple checks and repeat stool cx inpatient pending
Rinvoq started 10/29 with already improvement -- see prior notes of side effect review/plan moving forward
transitioned to Prednisone 25 mg BID 10/30 PM will need taper on discharge -- will have pt review with Dr. Franco with some difficulty with taper in past
monitor til tomorrow on PO steoid and aim for discharge in AM if continued improvement
cont Pepcid while on steroids-- some gastritis with first dose if needed can increased to BID -- hold PPI with hx c-diff
discussed adding calcium and vitamin D if greater than 3 month steroid use now over 1 month use consider OP dexa scan
cont management of hyperglycemia per medical team
CRP with now downward trend 31.7--36.5--23.6 -- 17.2
cont low residue diet
cont Lovenox -- high risk for clots
lipid panel/LFT's stable baseline will need repeat lipid panel with Rinvoq therapy
appreciate ID eval -pt wishes to hold on prophylactic zoster treatment at this time to monitor for Rivoq side effects -- OP shingrix vaccine non- live vaccine
pt scheduled follow up with Dr. Odom 11/18
Subjective
Subjective
Date of Service: October 31, 2024
low residue diet, continue improvement with less stools and less blood feeling better
Objective
Data Reviewed
Laboratory Data:
Laboratory Results
10/31/24 07:45
Laboratory Results
PT 13.0 Sec (11.4-14.6) 10/26/24 16:01
INR 0.95 10/26/24 16:01
APTT 23.8 Sec (23.4-35.0) 10/26/24 16:01
Phosphorus 4.2 mg/dl (2.5-4.5) 10/29/24 07:21
Magnesium 2.3 mg/dl (1.6-2.3) 10/29/24 07:21
Total Bilirubin 0.7 mg/dl (0.2-1.3) 10/29/24 07:21
AST 18 U/L (17-59) 10/29/24 07:21
ALT 23 U/L (0-50) 10/29/24 07:21
Alkaline Phosphatase 84 U/L (38-126) 10/29/24 07:21
Lipase 194 U/L (23-300) 10/26/24 16:01
Vital Signs and I&O:
Vital Signs
Temp Pulse Resp BP Pulse Ox
97.9 F 70 16 131/88 97
10/31/24 07:45 10/31/24 07:45 10/31/24 07:45 10/31/24 07:45 10/31/24 07:45
I&O
10/30/24 10/31/24 11/01/24
06:59 06:59 06:59
Intake Total 1320 / 1320 1600 / 1600
Balance 1320 / 1320 1600 / 1600
Physical Exam
Physical Exam
HEENT: Anicteric and Moist mucous membranes
Cardiology: Normal Sinus Rhythm
Pulmonary: Clear
GI: Soft, Non Distended and Non Tender
Extremities: No Edema
Neuro: Non Focal
[2024-10-31 09:28] LABS: Absolute Neutrophils -Man Diff 8.8 10^3/uL (1.4-6.5); Band Neutrophils 10 % (0-3); Lymphocytes 22 % (20-51); Monocytes 8 % (2-9); Normal RBC Morphology Yes; Platelets Checked Yes; Segmented Neutrophils 60 % (42-75); Total Cells Counted 100
[2024-10-31 10:24] LABS: Blood Urea Nitrogen 27 mg/dl (9-20); Calcium 8.8 mg/dl (8.4-10.2); Carbon Dioxide 30 mmol/L (22-30); Chloride 96 mmol/L (98-107); Estimated Creatinine Clearance 74 ml/min; Glucose 120 mg/dl (70-99); Potassium 3.9 mmol/L (3.5-5.1); Sodium 133 mmol/L (135-145); eGFR > 60.00
[2024-10-31 12:34] LABS: Glucose - Point of Care 206 mg/dl (70-99)
[2024-10-31] MEDS: NOVOLOG FLEXPEN-LOW RESISTANCE 2 UNITS SC ×2 (13:20→17:36)
[2024-10-31 15:17] VITALS: BP 108/67
[2024-10-31 16:35] LABS: Glucose - Point of Care 246 mg/dl (70-99)
[2024-10-31] MEDS: LOVENOX 40 MG SC (17:37)
[2024-10-31] MEDS: LIPITOR 40 MG PO (17:37)
[2024-10-31 22:04] LABS: Glucose - Point of Care 120 mg/dl (70-99)
[2024-10-31 23:50] VITALS: BP 159/98
[2024-11-01 07:00] VITALS: BP 125/81
[2024-11-01 08:19] LABS: Mean Corp Hgb Conc. 34.2 g/dL (33.0-37.0); Mean Corpuscular Hgb 29.6 pg (27.0-31.0); Mean Corpuscular Volume 86.6 fL (80.0-94.0); Mean Platelet Volume 9.8 fL (7.4-10.4); Platelet Count 287 10^3/uL (130-400); Red Blood Cell Count 4.39 10^6/uL (4.70-6.10); White Blood Cell Count 11.4 10^3/uL (4.8-10.8)
[2024-11-01 08:22] LABS: Glucose - Point of Care 196 mg/dl (70-99)
[2024-11-01] MEDS: NOVOLOG FLEXPEN 5 UNITS SC ×2 (08:27→12:58)
[2024-11-01] MEDS: NOVOLOG FLEXPEN-LOW RESISTANCE 1 UNITS SC ×2 (08:27→12:55)
[2024-11-01] MEDS: DELTASONE 25 MG PO (08:28)
[2024-11-01] MEDS: PEPCID 20 MG PO (08:28)
[2024-11-01] MEDS: LANTUS 0.15 UNITS SC (08:28)
[2024-11-01] MEDS: NON-FORMULARY ITEM 45 MG PO (08:29)
[2024-11-01 08:34] LABS: Blood Urea Nitrogen 25 mg/dl (9-20); Calcium 8.5 mg/dl (8.4-10.2); Carbon Dioxide 25 mmol/L (22-30); Chloride 98 mmol/L (98-107); Estimated Creatinine Clearance 74 ml/min; Glucose 167 mg/dl (70-99); Potassium 4.5 mmol/L (3.5-5.1); Sodium 131 mmol/L (135-145); eGFR > 60.00
[2024-11-01 08:43] LABS: % Basophils 0.6 % (0-2); % Immature Granulocytes 0.6 % (0-0.5); % Lymphocytes 13.6 % (20.5-51.1); % Neutrophils 78.2 % (42.2-75.2); Absolute Basophils 0.1 10^3/uL (0-0.2); Absolute Immature Granulocytes 0.1 10^3/uL (0-0.05); Absolute Lymphocytes 1.6 10^3/uL (1.2-3.4); Absolute Monocytes 0.8 10^3/uL (0.1-0.6); Absolute Neutrophils 8.9 10^3/uL (1.4-6.5); Nucleated Red Blood Cells % 0 % (-)
--- NOTE | 2024-11-01 10:24 | W.PN.HOSP.TC ---
Today's Communication/Plan
-
Discharge planning today
Assessment / Plan
Assessment / Plan
Physical Exam
General: Acutely ill
HEENT: Anicteric and Moist mucous membranes
Respiratory: Clear and Non Labored Respirations
Cardiac: S1/S2 and Regular Rhythm
GI: Soft and Tender (Mild throughout slightly greater on right than left; No rebound or guarding)
Rectal: Deferred by Provider
Musculoskeletal: No Clubbing, No Cyanosis and No Edema
Skin: Warm and Dry
Neuro: Awake, Alert, Oriented and Nonfocal/grossly intact
Psych: Calm
A/P:
Persistent Bloody Diarrhea due to worsening Ulcerative Colitis Flare (despite oral steroids/biological-Entyvio)
-GI consult appreciated
-IV steroids changed to oral steroids
-Low residue per GI
-Colorectal surgery consult-discussed with CRS and patient would like to continue with medical options.
-Flex Sigmoid shows worsening colitis--> IV steroids, f/u cultures, consider starting different biological agent ?Rinvoq ?Cyclosporine etc, CRS consult.
-GI consulted ID and reviewed their input
-C Diff negative. Stool cultures ok. CMV cultures are negative
-Discussed with at bedside prior
-Patient has been initiated on Rinvoq since 10/29
-Discussed with GI and he is cleared for discharge today
Hyperglycemia
-Patient reports pre-diabetes with HgbA1c ~6.2 for the past several years which he has controlled with diet
-Sugars are uncontrolled in setting of steroids
-Checked HgbA1c, 7.8
-continue coverage insulin
- Start Lantus 15 units while hospitalized and on iv steroids and now add 5 units Novolog ac. Continue to monitor sugars closely
-We went over several options upon discharge in terms of management of his diabetes mellitus. He might not need any particular medications but only lifestyle changes if the steroids are tapering and the sugars are going in the right direction but
will reevaluate over the next 24 hours.
Coronary Artery Disease s/p Stent
-Aspirin on hold in setting of bloody diarrhea but most likely restart over the next 24 to 48 hours.
Hyperlipidemia
-Continue atorvastatin
DVT proph: Lovenox SQ (high risk VTE due to IBD-would only hold if significant drop Hb and bleed)
Code Status: Full Code
Anticipated Discharge: Today
Subjective/Interval History
-
Date of Service: November 01, 2024
Patient feels well. Afebrile
Objective Data
-
Labs:
Laboratory Results
11/01/24
07:14
WBC 11.4 H
Hgb 13.0
Hct 38.0 L
Plt Count 287
Sodium 131 L
Potassium 4.5
Chloride 98
Carbon Dioxide 25
BUN 25 H
Creatinine 1.0
Glucose 167 H
Calcium 8.5
Vital Signs:
Vital Signs
Temp Pulse Resp BP Pulse Ox
99.1 F 91 18 125/81 97
11/01/24 07:00 11/01/24 07:00 11/01/24 07:00 11/01/24 07:00 11/01/24 07:00
I&O
10/31/24 11/01/24 11/02/24
06:59 06:59 06:59
Intake Total 1600 / 1600 480 / 480
Balance 1600 / 1600 480 / 480
[2024-11-01 12:06] LABS: Glucose - Point of Care 177 mg/dl (70-99)
--- NOTE | 2024-11-01 13:18 | W.DCSUMMARY ---
Discharge Summary
Discharge Data
Date of Admission: 10/26/24
Date of Discharge: 11/01/24
-
Pending Results: No
Hospital Course
Patient is 64 years old male history of ulcerative colitis that has failed outpatient treatment with oral steroids and Biologics came into the hospital with recurrent ulcerative colitis. GI consulted. Patient was started on IV steroids. Patient
also had a flexible sigmoidoscopy and found to have worsening colitis. Colorectal surgery consulted and for now patient decided on medical treatment. ID also was consulted by GI and went over discussions in terms of herpes virus prophylaxis.
Ultimately patient was started on another biologic agent with Rinvoq. Patient did well rest of the hospital stay and his GI symptoms improved substantially. He also was hyperglycemic due to high doses of steroids. Upon discharge we discussed a
few options for diabetes management and he opted to go with lifestyle changes and monitor his blood sugars closely without any medications which is reasonable since we are tapering the steroids at this point. He will reach out to his outpatient
barrel repairer upon discharge. He will be on a slow taper course of steroids as outpatient decreasing 10 mg/week (provided for 1 week course for now). He was also placed on H2 jaya and Bactrim for PCP prophylaxis while on steroids and
Biologics. Otherwise, patient hemodynamically stable and feels symptomatically much improved. Patient will be discharged in stable condition today.
Discharge duration: 35 minutes
Discharge Plan
-
Patient Disposition: Home (Routine Discharge)
Discharge Diagnosis/Procedures: Ulcerative colitis flare. Hyperglycemia. History of coronary artery disease
Diet: Low Cholesterol
Activity: As tolerated
Blood Work: Please PCP to order CBC, BMP within 1 week
Referrals:
[employer], provider [Other] (Contact barrel repairer within the next week.)
Donal Andrew MD [Active] - 11/18/24 (follow up 11/[address] andrew. Will need repeat cholesterol (12 weeks) and liver function, CBC testing. Call Migdalia in office to review for Rinvoq coverage.)
Jr Brooks, [Family Provider] - in less than 1 week
Ulises Coronado MD [Active] - in two to three weeks
Prescriptions:
New
prednisone 50 mg tablet
50 mg PO DAILY Qty: 7 0RF
Rx Instructions:
Will start tapering after 1 week completed 10 mg every week.
sulfamethoxazole-trimethoprim [Bactrim DS] 800-160 mg tablet
1 tab PO .every other day Qty: 20 0RF
Rinvoq
45 mg PO DAILY 30 Days 0RF
Continued
atorvastatin 40 MG tablet
40 mg PO QPM
epinephrine [EpiPen] 0.3 MG/0.3/SYRINGE auto-injector
0.3 mg IM PRN PRN (Reason: Allergic reation) Qty: 1 3RF
cholecalciferol (vitamin D3) [Vitamin D3] 50 mcg (2,000 unit) Capsule
50 mcg PO DAILY
aspirin 81 MG tablet,chewable
162 mg PO DAILY
Discontinued
prednisone 20 MG tablet
20 mg PO DAILY Qty: 3 0RF
Discharge Orders:
Discharge Patient (As Directed); Ordered 11/01/24
Ordered By: Juaquin Arellano
Discharge Date and Time
Discharge Date/Time: 11/01/24 16:21
Print Language: ALGERIAN
--- NOTE | 2024-11-01 13:24 | W.PN.GI.CBS2 ---
Today's Communication / Plan
-
- discharge today
Assessment / Plan
-
Pt is a 64yo with hx CAD with prior OH and stent, pilonidal cyst with prior surgery, c-diff, herpes zoster, NIDDM, longstanding ulcerative colitis with prior use of Mesalamine agent then inflectra. He was noted with some elevation on fecal ludmila up
to 1340 in February then proceed with colonoscopy in May with pancolitis with friability, erosions and acute/chronic inflammation. he was started on Entyvio in June but fecal ludmila continued to elevate to 3880 in August. He was placed on
outpatient steroids and 10/22 c-diff was neg with also neg c-diff, O+p, stool cx in August. He now presents with continued blood diarrhea with 10-12 stools per day. On admission noted with hbg 14, platelets 308, glucose 304 with otherwise stable
labs. Ct on admission with Moderate contiguous wall thickening involving the colon, extending from the rectum through the inferior cecum. Findings are compatible with the given clinical history of ulcerative colitis. No significant wall thickening
is seen involving the ileum. No evidence for bowel obstruction or free intraperitoneal air. There is no significant free pelvic fluid.
10/28/24 flex sig - Severe (Mccormick Score 3) ulcerative colitis up to the
proximal descending colon, worsened since the last
examination.
- Multiple biopsies were obtained in the rectum, in
the sigmoid colon and in the descending colon to rule
out CMV (sent for aguilera)
-ulcerative colitis flare with elevated fecal ludmila and rectal bleeding
-rectal to cecal inflammation on CT
-wt loss
other med problems:
-CAD with prior OH/stent
-hx c-diff
-NIDDM on medication but some FBS elevation with steroid use
-hx herpes Zoster
-pilonidal cyst
# UC flare -- CMV path neg
s/p flex 10/28 with severe Mccormick 3 disease up to proximal descending colon
moderate active colitis on path
OP stools neg, c-diff neg multiple checks and repeat stool cx neg, shiga pending
Rinvoq started 10/29 with already improvement -- see prior notes of side effect review/plan moving forward
transitioned to Prednisone 25 mg BID 10/30 PM will need taper on discharge -- will have pt review with Dr. Franco with some difficulty with taper in past
monitor til tomorrow on PO steoid and aim for discharge in AM if continued improvement
cont Pepcid while on steroids-- some gastritis with first dose if needed can increased to BID -- hold PPI with hx c-diff
discussed adding calcium and vitamin D if greater than 3 month steroid use now over 1 month use consider OP dexa scan
cont management of hyperglycemia per medical team
CRP with now downward trend 31.7--36.5--23.6 -- 17.2
cont low residue diet
cont Lovenox -- high risk for clots
lipid panel/LFT's stable baseline will need repeat lipid panel with Rinvoq therapy
appreciate ID eval -pt wishes to hold on prophylactic zoster treatment at this time to monitor for Rivoq side effects -- OP shingrix vaccine non- live vaccine
pt scheduled follow up with Dr. Odom 11/18
11/01/24 -patient is ready for discharge. I did give him a sample box of Rinvoq to ensure he has medication until everything is approved
-- continue induction Rinvoq 45mg x 8wks, then drop to maintenance dosing 30 mg
-- Continue Prednisone 50mg once daily x 1 wk, then drop by 10mg weekly until off - would do a quicker taper, but he's been on it since late Aug
-- consider Bactrim prophylaxis in patients on Rinvoq and steroids
-- high DVT risk in uncontrolled IBD so lovenox while here and move around well at home
-- has follow up with Dr. Odom on 11/18
-- home today
-- i gave him websites for IBD diet and information
-- ok for Shingrix vaccine
--No need for surgery
-- Can use Gaviscon at home feels gassy
Subjective
Subjective
Date of Service: November 01, 2024
Patient seen earlier in the day
He is doing well. No significant urgency and stools are becoming more formed. Ready for discharge
Objective
Data Reviewed
Laboratory Data:
Laboratory Results
11/01/24 07:14
11/01/24 07:14
Laboratory Results
PT 13.0 Sec (11.4-14.6) 10/26/24 16:01
INR 0.95 10/26/24 16:01
APTT 23.8 Sec (23.4-35.0) 10/26/24 16:01
Phosphorus 4.2 mg/dl (2.5-4.5) 10/29/24 07:21
Magnesium 2.3 mg/dl (1.6-2.3) 10/29/24 07:21
Total Bilirubin 0.7 mg/dl (0.2-1.3) 10/29/24 07:21
AST 18 U/L (17-59) 10/29/24 07:21
ALT 23 U/L (0-50) 10/29/24 07:21
Alkaline Phosphatase 84 U/L (38-126) 10/29/24 07:21
Lipase 194 U/L (23-300) 10/26/24 16:01
Vital Signs and I&O:
Vital Signs
Temp Pulse Resp BP Pulse Ox
99.1 F 91 18 125/81 97
11/01/24 07:00 11/01/24 07:00 11/01/24 07:00 11/01/24 07:00 11/01/24 07:00
I&O
10/31/24 11/01/24 11/02/24
06:59 06:59 06:59
Intake Total 1600 / 1600 480 / 480
Balance 1600 / 1600 480 / 480
Physical Exam
Physical Exam
HEENT: Anicteric
GI: Soft, Non Distended and Non Tender
--- NOTE | 2024-11-01 13:52 | CM ---
Pt is stable for d/c today per hospitalist. Pt is being recommended a glucometer at d/c.
CM spoke w/ pt regarding d/c today and glucometer, CM stated he can purchase one at [facility] and that they are usually an all in one kit that it comes in. Pt stated he did look them up and they are very affordable and will be able to purchase one
Pt stated spouse will transport him home
Plan: Home; no needs
[2024-11-01] MEDS: AFLURIA (36 mos+) 2024-2025 FORMULA 0.5 ML IM (15:03)
[2024-11-01 15:16] VITALS: BP 130/77
== END 2024-11-01 16:21 | disposition home or self-care (01) | DRG 386 ==
LOC: 4 WEST ACU 22:11
PROVIDERS: Nurse Practitioner Adult Health; Physician Assistant Medical; ADMITTING PHYSICIAN Hospitalist; ATTENDING PHYSICIAN Hospitalist; CONSULT PHYSICIAN Internal Medicine Infectious Disease; EMERGENCY PHYSICIAN Emergency Medicine; FAMILY PHYSICIAN Family Medicine; OTHER PHYSICIAN Student in an Organized Health Care Education/Training Program; OTHER PHYSICIAN Surgery
PROC: 0DBN8ZX Excision of Sigmoid Colon, Via Natural or Artificial Opening Endoscopic, Diagnostic (ICD-10-PCS; 2024-10-28)
PROC: 0DBM8ZX Excision of Descending Colon, Via Natural or Artificial Opening Endoscopic, Diagnostic (ICD-10-PCS; 2024-10-28)
PROC: 0DBP8ZX Excision of Rectum, Via Natural or Artificial Opening Endoscopic, Diagnostic (ICD-10-PCS; 2024-10-28)
DX: K51.911 Ulcerative colitis, unspecified with rectal bleeding (principal); K50.90 Crohn's disease, unspecified, without complications; K62.5 Hemorrhage of anus and rectum; Z87.891 Personal history of nicotine dependence; I25.10 Atherosclerotic heart disease of native coronary artery without angina pectoris; E11.65 Type 2 diabetes mellitus with hyperglycemia; E78.00 Pure hypercholesterolemia, unspecified
CPT/HCPCS: 88305; 74176; 80048; 80053; 80061; 82947; 82962; 83036; 83690; 83735; 83993; 84100; 85025; 85027; 85610; 85652; 85730; 86140; 86850; 86860; 86870; 86880; 86900; 86901; 86902; 87045; 87046; 87324; 87427; 87449; 88342; 90686; 96374; 99285; G0008

== ENCOUNTER 2024-12-28 07:34 | Outpatient (RCR) | payer OTHER, SELFPAY ==
[2024-11-30] MEDS: VENOFER 110 MG IV (08:11)
[2024-11-30 08:18] VITALS: BP 144/78
[2024-11-30 09:40] VITALS: BP 123/73
[2024-12-07 08:40] VITALS: BP 137/74
[2024-12-07] MEDS: VENOFER 110 MG IV (08:51)
[2024-12-07 09:59] VITALS: BP 133/74
[2024-12-14 07:55] VITALS: BP 130/73
[2024-12-14] MEDS: VENOFER 110 MG IV (07:55)
[2024-12-14 09:10] VITALS: BP 124/70
[2024-12-21 08:30] VITALS: BP 148/85
[2024-12-21] MEDS: VENOFER 110 MG IV (08:45)
[2024-12-21 10:07] VITALS: BP 122/62
[2024-12-28 07:50] VITALS: BP 150/83
[2024-12-28] MEDS: VENOFER 110 MG IV (07:59)
[2024-12-28 09:09] VITALS: BP 122/64
== END 2024-12-28 23:59 | disposition home or self-care (01) ==
LOC: OID 07:34
PROVIDERS: ATTENDING PHYSICIAN Specialist; FAMILY PHYSICIAN Family Medicine
DX: D50.0 Iron deficiency anemia secondary to blood loss (chronic) (principal); K51.00 Ulcerative (chronic) pancolitis without complications
CPT/HCPCS: 96365; J1756

== ENCOUNTER 2025-06-14 06:19 | Day surgery (SDC) | payer OTHER, SELFPAY | END 2025-06-14 09:57 | disposition home or self-care (01) | LOC: GI 06:19 | PROVIDERS: ATTENDING PHYSICIAN Specialist | DX: K51.00 Ulcerative (chronic) pancolitis without complications (principal); K63.5 Polyp of colon | CPT/HCPCS: 45378; 88305 ==

== ENCOUNTER → 2025-07-14 07:11 | Outpatient (REF) | payer OTHER, SELFPAY | LOC: HWRAD 07:11 | PROVIDERS: ATTENDING PHYSICIAN Internal Medicine Endocrinology, Diabetes & Metabolism; FAMILY PHYSICIAN Family Medicine | DX: E04.2 Nontoxic multinodular goiter (principal) | CPT/HCPCS: 76536 ==

== ENCOUNTER → 2025-08-02 07:03 | Outpatient (REF) | payer OTHER, SELFPAY | LOC: HWRCS 07:03 | PROVIDERS: ATTENDING PHYSICIAN Internal Medicine Cardiovascular Disease; FAMILY PHYSICIAN Family Medicine | DX: I25.2 Old myocardial infarction (principal) | CPT/HCPCS: 93306 ==